=== PATIENT | female | born 1950 | race Caucasian/White ===

== ENCOUNTER 2016-06-30 10:25 | Inpatient (IN) | payer MEDICARE, OTHER ==
[~2016-06-30] VITALS: Ht 152.4 cm; Wt 85.0 kg
[2016-06-30] VITALS (8 sets, daily range): BP systolic 138–198; BP diastolic 68–109; PULSE 68–93; RESP 12–22; O2SAT 89–98
--- NOTE | 2016-06-30 10:52 | ED.REPORT ---
HPI-Altered Mental Status Date of Service Jun 30, 2016 ED Provider: Dr. Corral Pt is a 66 y/o female w/ a hx of HTN presenting to the ED with her daughter due to generalized confusion onset about 2 weeks ago. She is unable to follow conversations, needs inordinate amount of explanation for simple tasks, and other aspects of generalized confusion. The patient saw her PCP in [place] 3 days ago who thought she may have had a stroke and was recommended to "get a blood draw and go back to see her in 1 week". A urine sample was not obtained at that time. She was recently placed on some unspecified memory medication. She denies focal numbness or weakness, dysarthria, fever, chills, nausea, vomiting, abdominal pain, chest pain, shortness of breath. She apparently spends most of her time in bed watching TV which is normal for her. There is a family history of dementia in her mother at age 80. She denies alcohol or drug use. The patient requests her daughter give the history therefore personal history is limited. Nursing Notes Stated Complaint: CONFUSION POSS STROKE WITHIN THE LAST WEEK Chief Complaint: General Complaint Nursing Notes Reviewed: Yes Allergies: Coded Allergies: No Known Allergies (Unverified , 06/30/16) General Time Seen by MD: 10:52 Chief Complaint Confused Hx Obtained From: Patient, Daughter Arrived By: Walk-in Sudden in Onset?: No Onset Occurred: More than a week ago... (2 weeks) Symptom Duration: Since onset Progression since Onset: Constant Severity: Current: No pain currently Severity: Maximum: No pain Similar Sx Previous: No Risk Factors NIH Stroke Scale Level of Consciousness: Alert and responsive (0) Ask Month & Age: 0 questions right (2) Open/Close Eyes/Hand Quantitative Analyst Marketing: Performs both tasks (0) Horizontal EO Movements: None (0) Visual Olmedo: No visual loss (0) Facial Palsy: Normal symmetry (0) Right Arm Motor Drift (10s): No drift 10 sec (0) Left Arm Motor Drift (10s): No drift 10 sec (0) Right Leg Motor Drift (5s): No drift 5 sec (0) Left Leg Motor Drift (5s): No drift 5 sec (0) Limb Ataxia FNF/Heel-Marks: No ataxia (0) Sensation (Arms/Legs/Face): No sensory loss (0) Language Aphasia: Loss fluency ID matls (1) Dysarthria: No dysarthria, normal (0) Extinction/Inattention: No exctinct/inattent (0) NIHSS Score: 3 Time NIHSS Performed: 10:58 Date NIHSS Performed: Jun 30, 2016 Past Medical History Past Medical History Glaucoma Hypertension Past Surgical History None reported Smoking History Unknown if Ever Smoker Social History Alcohol Use: Denies alcohol use Drug Use: Denies drug use Ambulatory Status Independent Review of Systems Constitutional: Denies: Chills, Fever Respiratory: Denies: Non-productive cough, Shortness of breath Cardiovascular: Denies: Chest pain, Dyspnea on exertion GI: Denies: Abdominal pain, Diarrhea, Nausea, Vomiting Neurologic: Reports: Confusion, Denies: Change LOC, Focal weakness, Headache, Numbness, Problem walking, Seizure, Slurred speech, Spinning sensation, Syncope, Vision change Complete sys rev & neg: except as marked. Physical Exam Initial Vital Signs Vital Signs (First) Date Time Temp Pulse Resp B/P Pulse Ox O2 Delivery O2 Flow Rate FiO2 06/30/16 10:42 36.8 68 12 198/109 89 Room Air 06/30/16 16:16 4 Initial VS: Reviewed, Vital signs abnormal ENT: Mucous membranes moist, Conjunctiva normal, No scleral icterus Abdomen / GI: Soft, Non-tender, No guarding, No rebound, No distention Extremities: Vascular intact, Neuro intact, No swelling, No tenderness Skin: Warm, Dry, No cyanosis Psychiatric: Mood/affect normal, Behavior normal, Normal thought content General/Constitutional: Awake, Alert, No acute distress, Cooperative, Not toxic appearing Head / Eyes: Atraumatic, Normocephalic, PERRL, EOMI Neck: Supple, No meningismus, Full range of motion Respiratory / Chest: Atraumatic, Breath sounds NL, Breath sounds = bilat, No respiratory distress, No rales, No rhonchi, No wheezing, No retractions, No stridor, No chest tenderness, No chest wall deformity, No crepitus Cardiovascular: Heart rate NL, Heart sounds NL, No gallop, No murmurs, No rubs Heart Rate / Rhythm: Positive: Irregular rhythm Neurologic: No motor deficits, No sensory deficits, CN II - XII intact, Cerebellar NL See NIH = 3 Interpretation & Diagnostics Interpretation & Diagnostics: MRI brain w/ and w/out contrast: IMPRESSION: 1. Increased restricted diffusion within the left frontal lobe consistent with acute or subacute infarct. 2. No other acute intracranial findings. These findings were discussed with Dr. Corral at 3:30 PM on 06/30/16 Dictated by: Fatemeh Rizo M.D. on 06/30/2016 at 15:48 Approved by: Fatemeh Rizo M.D. on 06/30/2016 at 16:03 Lab Results Interpretation Result Diagram: 06/30/16 1134 06/30/16 1134 Test 06/30/16 11:34 White Blood Count 7.8th/mm3 (3.8-10.1) Red Blood Count 5.37mil/mm3 (3.90-5.20) Hemoglobin 15.8g/dL (12.0-15.6) Hematocrit 47.6% (35.0-46.0) Mean Corpuscular Volume 88.6fL (81-100) Mean Corpuscular Hemoglobin 29.4pg (27.0-35.0) Mean Corpuscular Hemoglobin Concent 33.2% (32.0-37.0) Red Cell Distribution Width 14.8% (12.3-15.4) Platelet Count 285bil/L (150-400) Neutrophils (%) (Auto) 78.0% (40-74) Lymphocytes (%) (Auto) 10.4% (14-46) Monocytes (%) (Auto) 8.6% (4-12) Eosinophils (%) (Auto) 1.2% (0-5) Basophils (%) (Auto) 1.7% (0-3) Prothrombin Time 13.3sec (8.1-12.5) Prothromb Time International Ratio 1.24ratio Urine Color Yellow (YELLOW) Urine Appearance Hazy (CLEAR,HAZY) Urine pH 6.5 (5.0-8.0) Urine Specific Cecil 1.025 (1.003-1.035) Urine Protein 100mg/dL (NEG,TRACE) Urine Glucose (UA) Negativemg/dL (NEGATIVE) Urine Ketones Negativemg/dL (NEGATIVE) Urine Occult Blood Trace (NEGATIVE) Urine Nitrite Negative (NEGATIVE) Urine Bilirubin Negative (NEGATIVE) Urine Urobilinogen Normalmg/dL (NORMAL) Urine Leukocyte Esterase Negative (NEGATIVE) Urine RBC 3-10/hpf (0-2) Urine WBC 0-5/hpf (0-5) Urine Epithelial Cells Occasional/hpf (NONE-MOD) Urine Crystals None seen (NONE SEEN) Urine Bacteria None/hpf (NONE-FEW) Urine Hyaline Casts Occasional/lpf (NONE) Urine Granular Casts None seen (NONE SEEN) Urine Waxy Casts None seen (NONE SEEN) Urine Red Blood Cell Casts None seen (NONE SEEN) Urine White Blood Cell Casts None seen (NONE SEEN) Urine Mucus Present (None Seen) Urine Trichomonas None seen (NONE SEEN) Urine Yeast None (NONE SEEN) Urinalysis Comment None Urine Culture Reflexed Not indicated Sodium Level 138mEq/L (134-144) Potassium Level 2.8mEq/L (3.5-5.2) Chloride Level 96mEq/L (97-108) Carbon Dioxide Level 26mmol/L (18-29) Blood Urea Nitrogen 18mg/dL (8-27) Creatinine 0.91mg/dL (0.57-1.00) Estimat Glomerular Filtration Rate 88mL/min (>59) Glucose Level 145mg/dL (60-99) Calcium Level 9.6mg/dL (8.5-10.1) Total Bilirubin 1.2mg/dL (0.0-1.2) Aspartate Amino Transf (AST/SGOT) 19U/L (0-50) Alanine Aminotransferase (ALT/SGPT) 12U/L (0-32) Alkaline Phosphatase 50U/L (25-165) Pro-B-Type Natriuretic Peptide 3604pg/mL (0-301) Total Protein 7.7g/dL (6.4-8.4) Albumin 3.7g/dL (3.4-5.0) Thyroid Stimulating Hormone (TSH) 2.900uIU/mL (0.450-4.500) Hold Julian Top Tube Received (Received) ECG Interpretation ECG Interpretation: A-fib rate 88 PVC LPFB Nonspecific T abnormalities, lateral leads Time: 13:04 Interpreted by: ED physician Normal ECG Interpretation: No acute ischemic changes X-Ray Chest Interpretation Chest Xray Interpretation: IMPRESSION: 1. Increased pulmonary vascularity suggestive of edema. Bibasilar coarsened prominence as above. This may represent focal edema versus superimposed airspace disease such as developing pneumonia/atelectasis. Dictated by: Gillian Shaikh M.D. on 06/30/2016 at 11:46 Approved by: Gillian Shaikh M.D. on 06/30/2016 at 11:46 View: Portable, AP & lat Interpretation / Wet Read by: Interpret - Radiologist CT Head Interpretation IMPRESSION: 1. No acute intracranial hemorrhage. 2. Probable chronic small vessel ischemic changes. If there is clinical concern for acute ischemia, MRI would be helpful for better evaluation, particularly involving the left frontal lobe. Dictated by: Jose Hampton M.D. on 06/30/2016 at 10:54 Approved by: Jose Hampton M.D. on 06/30/2016 at 10:56 Study: Head CT no contrast Interpretation / Wet Read by: Interpret - Radiologist Re-Eval/Medical Decision Re-Evaluation/Progress #1: Time of Eval: 12:37 Re-Evaluation/Progress Note: Discussed findings thus far with pt and daughter. Will obtain MRI. Re-Evaluation/Progress #2: Time of Eval: 15:23 Re-Evaluation/Progress Note: Pt rechecked. Informed patient and daughter of need for admission due to likely acute frontal lobe ischemic stroke. Pt understands and agrees with need for admission. All questions addressed. Consultation : Referral / Consult Name: Brijesh Tolentino MD Consulted With: Hospitalist Call Returned at: 16:15 Maori Physiotherapist: Will see patient, Agrees with eval, Agrees with plan, Accepts admit Counseled Regarding: Diagnosis, Lab results, Need for admission Patient Discharge & Departure Impression: Primary Impression: Ischemic stroke of frontal lobe Disposition: ADMITTED TO HOSPITAL Discharge Condition All VS Reviewed: Yes Condition: Stable Scribe Attestation Portions of this note were transcribed by Shine Hernandez. I, Dr. Corral personally performed the history, physical exam and medical decision-making; I reviewed and confirmed the accuracy of the information in the transcribed note. Signed by Tori Fontenot, 06/30/16 - 1099 Lonnie Corral MD Jun 30, 2016 10:52 SHINE HERNANDEZ Jun 30, 2016 11:00
[2016-06-30 11:38] LABS: BASOPHILS % (AUTO) 1.7 % (0-3); EOSINOPHILS % (AUTO) 1.2 % (0-5); MONOCYTES % (AUTO) 8.6 % (4-12); Mean Corpuscular Hemoglobin 29.4 pg (27.0-35.0); Mean Corpuscular Volume 88.6 fL (81-100); Platelet Count 285 bil/L (150-400)
[2016-06-30 11:41] LABS: APPEARANCE,URINE HAZY (CLEAR,HAZY); COLOR,URINE YELLOW (YELLOW); PH,URINE 6.5 (5.0-8.0)
[2016-06-30 11:42] LABS: OCCULT BLOOD,URINE TRACE (NEGATIVE); UROBILINOGEN,URINE NORMAL (NORMAL)
--- NOTE | 2016-06-30 11:48 | DRSVH ---
PROCEDURE: X-RAY CHEST, TWO VIEWS ([id number]) INDICATIONS: confusion TECHNIQUE: 2 views of the chest were acquired. COMPARISON: None. FINDINGS: Surgical changes and devices: None. Lungs and pleura: There is an overall appearance of increased pulmonary vascularity. There is slight increased coarsened opacities within the bases bilaterally. Mediastinum: Mediastinal contours are normal. Heart size is enlarged. Bones and chest wall: No suspicious bony abnormalities. Soft tissues appear unremarkable. IMPRESSION: 1. Increased pulmonary vascularity suggestive of edema. Bibasilar coarsened prominence as above. This may represent focal edema versus superimposed airspace disease such as developing pneumonia/atelecta sis. Dictated by: Gillian Shaikh M.D. on 06/30/2016 at 11:46 Approved by: Gillian Shaikh M.D. on 06/30/2016 at 11:46
[2016-06-30 11:55] LABS: INR 1.24 ratio
--- NOTE | 2016-06-30 11:58 | DRSVH ---
PROCEDURE: CT BRAIN WITHOUT CONTRAST ([id number]) INDICATIONS: Confusion TECHNIQUE: Noncontrast 4.5 mm thick angled axial sections acquired from the foramen magnum to the vertex, with c oronal reformats. COMPARISON: None. FINDINGS: Image quality: Diagnostic. Brain: There is no acute intra-axial or extra-axial hemorrhage. No extra-axial fluid collection is i dentified. There is no midline shift or mass effect. The orbits are grossly unremarkable. No large areas of diffusely decreased attenuation are evident within the brain to suggest diffuse cer ebral edema. Moderate-sized area of low attenuation is seen within the deep white matter of the left frontal lobe. There may be additional areas of periventricular white matter low attenuation. The ventricles and cortical sulci are age-appropriate. Bones: Calvarium and visualized facial bones are grossly intact. The imaged paranasal sinuses and m astoid air cells are clear. IMPRESSION: 1. No acute intracranial hemorrhage. 2. Probable chronic small vessel ischemic changes. If there is clinical concern for acute ischemia, MRI would be helpful for better evaluation, particularly involving the left frontal lobe. Dictated by: Jose Hampton M.D. on 06/30/2016 at 10:54 Approved by: Jose Hampton M.D. on 06/30/2016 at 10:56
--- NOTE | 2016-06-30 16:05 | DRSVH ---
PROCEDURE: MRI BRAIN WITHOUT CONTRAST ([id number]) INDICATIONS: acute confusion TECHNIQUE: Noncontrast axial T1 spin echo, axial T2 fast spin echo, sagittal and axial FLAIR, coronal T2 fast sp in echo, axial gradient echo, axial diffusion and ADC through the brain. COMPARISON: None. FINDINGS: Image quality: Excellent. CSF Spaces: Basal cisterns are patent. No extra-axial fluid collections. Ventricles are normal in size and shape. Brain: No intracranial masses or hemorrhage. Gutierrez/white matter interface is normal. Brainstem appe ars normal. Focal increased restricted diffusion is present within the left frontal lobe. There is no T2 shine through associated with this region consistent with acute or subacute infarct. No other abn ormal foci of increased restricted diffusion. No chronic ischemic insults. Normal intravascular flow voids are present. Skull and face: Calvarium has normal marrow signal. Orbits appear normal. Sinuses: Sinuses and mastoids are clear. IMPRESSION: 1. Increased restricted diffusion within the left frontal lobe consistent with acute or subacute infa rct. 2. No other acute intracranial findings. These findings were discussed with Dr. Corral at 3:30 PM on 06/30/16 Dictated by: Fatemeh Rizo M.D. on 06/30/2016 at 15:48 Approved by: Fatemeh Rizo M.D. on 06/30/2016 at 16:03
[2016-06-30] MEDS ORDERED: Ondansetron 2 mg/mL 2 mL Inj IVPUSH PRN (16:15)
[2016-06-30] MEDS ORDERED: Labetalol 5 mg/mL 4 mL Inj IVPUSH PRN (16:15)
[2016-06-30] MEDS ORDERED: Alum-Mag Hydrox-Simeth 30 mL Suspension PO PRN (16:15)
[2016-06-30] MEDS ORDERED: Polyethylene Glycol (PEG) 17 Gm Powder PO PRN (16:15)
[2016-06-30] MEDS ORDERED: hydrALAZINE 20 mg/mL Inj IVPUSH PRN (16:15)
--- NOTE | 2016-06-30 17:36 | PCM.HPMED ---
Subjective Date of Service Jun 30, 2016 Primary Provider: Admitting Physician: Brijesh Tolentino MD Primary Care Physician: Nopalayna Attending Physician: Brijesh Tolentino MD Admit Status: From the Emergency Department, Full Admit Chief Complaint: Confusion/2 weeks History of Present Illness: History limited due to patient's confusion. Daughter who lives in [place] left to pick her kids. her number not registered. Patient from [facility]. History obtained from ED physician and chart 66-year-old lady with past medical history of Afib, hypertension and glaucoma was brought in by daughter because of continued confusion for the last 2 weeks. per ED note "She is unable to follow conversations, needs inordinate amount of explanation for simple tasks, and other aspects of generalized confusion. The patient saw her PCP in [place] 3 days ago who thought she may have had a stroke and was recommended to "get a blood draw and go back to see her in 1 week". A urine sample was not obtained at that time. She was recently placed on some unspecified memory medication? donepezil . She denies focal numbness or weakness, dysarthria, fever, chills, nausea, vomiting, abdominal pain, chest pain, shortness of breath. She apparently spends most of her time in bed watching TV which is normal for her. There is a family history of dementia in her mother at age 80. She denies alcohol or drug use. At time of examination, patient not oriented to place or person.answers in yes and no . Repeats whatever is asked . Patient says ' no ' to recent cough or worsening dyspnea. per ED physician patient was told she has A. fib and was prescribed pradaxa but did not take it. ED course: Initial BP 192/109, saturating 89% on room air, in A. fib rate controlled, chest x-ray congestion versus pneumonia, MRI shows left frontal lobe acute/subacute infarct. Initial NIHSS 3 , not candidate for TPA. Dementia is requested for acute stroke. Review of Systems: Unable to obtain due to confusion. Allergies Coded Allergies: No Known Allergies (Unverified , 06/30/16) Home Medications per ED Pradaxa 150 milligrams po bid Diltiazem 180 mg per day Donepezil 5 mg by mouth daily Hydrochlorothiazide 50 mg. Daily Latanoprost eyedrop Paroxetine 40 mg by mouth daily PMH Per ED Hypertension History of atrial fibrillation Glaucoma Surgical History Unable to obtain due to patient's confusion Family History per ED mother had dementia at age 80 Social History Smoking Status: Unknown if Ever Smoker Exam Vital Signs Vital Sign - Last Date Time Temp Pulse Resp B/P Pulse Ox O2 Delivery O2 Flow Rate FiO2 06/30/16 16:16 36.4 88 20 177/68 94 Nasal Cannula 4 Exam Gen. patient is in mild respiratory distress with tachypnea HEENT: Head is normocephalic atraumatic, Pupils equal and reactive, extraocular movements intact, Rhonchi on left lower lobe Heart irregular rate and rhythm without murmurs gallops or rubs Abdomen soft nontender without hepatosplenomegaly Extremities pulses are present dorsalis pedis posterior tibialis and radial. Skin is warm and dry there are no rashes, Psych alert and oriented to person place and time Neuro confused and mumbles. Motor intact 5/5 all over, sensation difficult to assess due to patient's confusion. Symmetrical face Lymph: There is no lymphadenopathy appreciated in the cervical supra infraclavicular regions : no nunez Lab and Diagnostics Result Diagram: 06/30/16 1134 06/30/16 1134 X-Rays, CTs and MRIs PROCEDURE: MRI BRAIN WITHOUT CONTRAST ([id number]) IMPRESSION: 1. Increased restricted diffusion within the left frontal lobe consistent with acute or subacute infarct. 2. No other acute intracranial findings. These findings were discussed with Dr. Corral at 3:30 PM on 06/30/16 Dictated by: Fatemeh Rizo M.D. on 06/30/2016 at 15:48 PROCEDURE: X-RAY CHEST, TWO VIEWS ([id number]) IMPRESSION: 1. Increased pulmonary vascularity suggestive of edema. Bibasilar coarsened prominence as above. This may represent focal edema versus superimposed airspace disease such as developing pneumonia/atelectasis. Dictated by: Gillian hSaikh M.D. on 06/30/2016 at 11:46 Assessment & Plan 66-year-old lady with past medical history of Afib, hypertension and glaucoma was brought in by daughter because of continued confusion for the last 2 weeks # Acute left frontal stroke -Suspect embolic given A. fib with unclear anticoagulation compliance. -initial NIHSS 3 -MRI consistent with left frontal lobe acute/subacute infarct -Aspirin and atorvastatin ordered -PT/OT/ST requested -Echocardiogram and carotid duplex pending -will hold off anticoagulation for now. May consider restarting anticoagulation tomorrow after verifying onset of symptoms > 10 days from daughter and discussing with [facility] neurology. -Symptom onset reportedly 2 weeks. No need for permissive hypertension. Will resume home diltiazem and hydrochlorothiazide. Started amlodipine 10 mg by mouth daily for additional BP control # Hypertensive urgency -Symptom onset reportedly 2 weeks. No need for permissive hypertension. Will resume home diltiazem and hydrochlorothiazide. Started amlodipine 10 mg by mouth daily for additional BP control # Hypokalemia -Initial K 2.8, repeleted -Follow-up BMP in am #Suspected left lower lobe aspiration pneumonitis -Afebrile, no leukocytosis, rhonchi on left lower chest -Possible aspiration pneumonitis, pneumonia unlikely. Will pro-calcitonin. will hold off empiric antibiotics. Consider empiric antibiotics if any fever -BNP elevated at 3604, chest x-ray suspicious for congestion. Echo pending. Breathing comfortably. will hold off empiric diuresis # Atrial fibrillation, rate controlled -Unclear when she was diagnosed and if she is compliant with pradaxa.May consider restarting anticoagulation tomorrow after verifying onset of symptoms > 10 days from daughter and discussing with [facility] neurology. # Recent cognitive decline and confusion -Most likely due to subacute CVA, patient reportedly started on donepezil recently. will verify from daughter and discontinue tomorrow CODE STATUS, unable to verify, default full code Patient admitted under inpatient status with expected length of stay > 2 midnights for severity of present symptoms, complexities of treatment plan and risk for adverse events Time spent 50 minutes Brijesh Tolentino MD Jun 30, 2016 17:36
[2016-06-30] MEDS ORDERED: DABI150C PO (17:38)
[2016-06-30] MEDS ORDERED: HYDR50TA3 PO (17:38)
[2016-06-30] MEDS ORDERED: DILT180C81 PO (17:38)
[2016-06-30] MEDS ORDERED: LATA2.5D6 BOTH_EYES (17:38)
[2016-06-30] MEDS ORDERED: DONE5TAB30 PO (17:38)
[2016-06-30] MEDS ORDERED: PARO40TA3 PO (17:38)
--- NOTE | 2016-06-30 17:46 | DRSVH ---
PROCEDURE: US BILATERAL DUPLEX DOPPLER IMAGING OF THE CAROTIDS ([id number]) INDICATIONS: CVA TECHNIQUE: Color and pulse Doppler interrogation was performed of both carotid systems, with image documentation and velocity measurements. COMPARISON: None. FINDINGS: All stenosis calculations are based on NASCET criteria. Right side: Brachial blood pressure: 177/68 mm Hg. Common carotid artery peak systolic velocity: 52 cm/sec. Internal carotid artery peak systolic velocity: 52 cm/sec. Internal carotid artery end diastolic velocity: 13 cm/sec. External carotid artery peak systolic velocity: 75 cm/sec. ICA/CCA peak systolic ratio: 1.0 . Gutierrez scale imaging description: There is mild calcified plaque at the carotid bifurcation. Percent internal carotid artery stenosis: Less than 50%. Vertebral artery: Flow direction is antegrade. Left side: Brachial blood pressure: 197/87 mm Hg. Common carotid artery peak systolic velocity: 63 cm/sec. Internal carotid artery peak systolic velocity: 103 cm/sec. Internal carotid artery end diastolic velocity: 9 cm/sec. External carotid artery peak systolic velocity: 187 cm/sec. ICA/CCA peak systolic ratio: 1.6 . Gutierrez scale imaging description: There is mild calcified plaque at the carotid bifurcation. Percent internal carotid artery stenosis: Less than 50%. Vertebral artery: Flow direction is antegrade. IMPRESSION: 1. No evidence of hemodynamically significant stenosis in the carotid bulbs. Dictated by: Howie Don M.D. on 06/30/2016 at 17:42 Approved by: Howie Don M.D. on 06/30/2016 at 17:45
--- NOTE | 2016-06-30 17:48 | NUR ---
Evaluation completed. Please go to "Notes" then click on "Assessments and Notes" (bottom left corner of screen). Then select appropriate discipline tab on top of screen.
[2016-06-30] MEDS ORDERED: Potassium Chloride 20 mEq SR Tablet PO ONE (18:00)
--- NOTE | 2016-06-30 18:45 | NUR ---
Arrived to [facility] from ED Report taken 16:30pm Kathleen Parham RN; 18:45pm pt arrived to [facility] Rm 1007 from ED and tucked into bed with family at BS. BP 190's/90's, no c/o pain per aide. Report given to JULES rubalcava RN.
[2016-06-30] MEDS: Heparin 5,000 Unit/mL Inj SUBQ SCH (20:18)
[2016-06-30] MEDS: Diltiazem CD 180 mg ER24 Capsule PO SCH (20:19)
[2016-06-30] MEDS: PARoxetine 20 mg Tablet PO SCH (20:20)
[2016-07-01] VITALS (8 sets, daily range): BP systolic 126–168; BP diastolic 61–78; PULSE 60–76; RESP 16–18; O2SAT 90–97
--- NOTE | 2016-07-01 01:51 | NUR ---
HYPERTENSION Pt arrived on [facility] at 1842, spoke with pt and daughter after shift change and report rec'd from Day RN. Pt denies hunger, 1:1 for feeding at this time with general diet. Family phone #s noted on white board in room per their request. This RN spoke with Dr Mata, discussed BP after PO meds are administered and was given verbal instructions to administer labetalol IV PRN at 2100: BP 180/95, recheck at 2300 138/79. On tele, SR. 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 Somewhat aphasic with slow speech and word searching, AOx2 baseline. Pt appears comfortable in bed, states no SOB or pain. Care continues
[2016-07-01] MEDS: Heparin 5,000 Unit/mL Inj SUBQ SCH ×3 (05:05→20:17)
[2016-07-01 05:39] LABS: BASOPHILS % (AUTO) 1.2 % (0-3); EOSINOPHILS % (AUTO) 1.1 % (0-5); MONOCYTES % (AUTO) 10.9 % (4-12); Mean Corpuscular Hemoglobin 29.4 pg (27.0-35.0); Mean Corpuscular Volume 89.7 fL (81-100); NEUTROPHILS % (AUTO) 75.7 % (40-74); Platelet Count 282 bil/L (150-400)
[2016-07-01] MEDS: PARoxetine 20 mg Tablet PO SCH (08:57)
[2016-07-01] MEDS: Diltiazem CD 180 mg ER24 Capsule PO SCH (08:57)
--- NOTE | 2016-07-01 09:58 | NUR ---
Limited evaluation completed. Pt. refused to get out of bed. Otherwise cooperative. Will try again for out of bed functional assessment. José Coffey, OTR/L
--- NOTE | 2016-07-01 14:07 | DRSVH ---
PROCEDURE: MRA ANGIOGRAM HEAD WITHOUT CONTRAST ([id number]) INDICATIONS: acute stroke. TECHNIQUE: Noncontrast axial 3-D [id number] MR angiogram, with 3-dimensional maximum intensity projection (M IP) reformats of the internal carotid arteries and posterior circulation then performed. COMPARISON: [facility], MR, MR BRAIN WO CON, 06/30/2016, 13:50. FINDINGS: Image quality: Excellent. Anterior circulation: Intracranial internal carotid arteries demonstrate normal size and intralumina l flow signal. The flow within the paired anterior cerebral arteries is normal and symmetric. The f low within the middle cerebral arteries is normal and symmetric. The anterior communicating artery i s seen. No stenoses, occlusions, or aneurysms. Posterior circulation: Visualized portions of the vertebral arteries demonstrate normal caliber, and join to form a normal appearing basilar artery. There is a origin of the left posterior cerebr al artery. The flow within the posterior cerebral arteries is normal and symmetric. No stenoses, occ lusions, or aneurysms. IMPRESSION: 1. Negative cerebral MR angiography. Dictated by: Eva Perez M.D. on 07/01/2016 at 14:03 Approved by: Eva Perez M.D. on 07/01/2016 at 14:05
--- NOTE | 2016-07-01 15:01 | PCM.PNMED ---
Subjective Date of Service Jul 01, 2016 Subjective Denies any complaints or discomfort. Denies any weakness, numbness, change in vision, confusion. Exam Vital Signs Vital Sign - Last Date Time Temp Pulse Resp B/P Pulse Ox O2 Delivery O2 Flow Rate FiO2 07/01/16 12:38 36.6 62 18 134/67 90 Room Air 07/01/16 05:09 2.00 Intake and Output 06/30/16 06/30/16 07/01/16 Cumulative From/Thru 15:00 23:00 07:00 06/30/16 10:42 - 07/01/16 05:09 Intake Total 200 ml 200 ml Output Total 250 ml 850 ml 1100 ml Balance -250 ml -650 ml -900 ml Intake Oral 200 ml 200 ml Output Urine Total 250 ml 850 ml 1100 ml # Bowel Movements 0 [address] but disoriented to time and person although with some help is able to recall the president. General: Alert, Cooperative, No Acute Distress Head: Normal Eyes: PERRLA, EOMI Nose: Mucous Membr Moist/[place] Mouth: Mucous Membr Moist/[place] Neck: Supple Chest & Lungs: Chest Wall Normal, Clear to auscultation & percussion Cardiovascular: Regular Rate/Rhythm Abdomen: Non-tender, Non-distended, Normoactive bowel tones, Soft Extremities: No cyanosis/clubbing/edma bilat Neurological: Grossly Neurologically Intact, Cranial Nerves 2-12 Intact, Normal Speech, Strength Normal 06/10 ext IVs and Medications Medications Reviewed: Medications were reviewed in detail Lab and Diagnostics Result Diagram: 07/01/16 0510 07/01/16 0510 X-Rays, CTs and MRIs PROCEDURE: MRI BRAIN WITHOUT CONTRAST ([id number]) IMPRESSION: 1. Increased restricted diffusion within the left frontal lobe consistent with acute or subacute infarct. 2. No other acute intracranial findings. These findings were discussed with Dr. Corral at 3:30 PM on 06/30/16 Dictated by: Fatemeh Rizo M.D. on 06/30/2016 at 15:48 PROCEDURE: X-RAY CHEST, TWO VIEWS ([id number]) IMPRESSION: 1. Increased pulmonary vascularity suggestive of edema. Bibasilar coarsened prominence as above. This may represent focal edema versus superimposed airspace disease such as developing pneumonia/atelectasis. Dictated by: Gillian Shaikh M.D. on 06/30/2016 at 11:46 Assessment & Plan 66-year-old lady with past medical history of Afib, hypertension and glaucoma was brought in by daughter because of continued confusion for the last 2 weeks # Acute to subacute left frontal stroke. Present on admission. - History of A. fib with unclear anticoagulation compliance. - Neurology consulted today. Will followup with recommendations - Check MRA head - Continue with Aspirin and atorvastatin for now - PT/OT/ST - Followup pending Echocardiogram - Continue with blood pressure control - Avoid anticoagulation for A-Fib for now - Patient tells me she had not been compliant with her medications although given her disorientation currently her history is somewhat suspect\ # Acute kidney injury. Mild. Not present on admission. - Avoid nephrotoxic medications - Followup repeat labs and consider gentle IV hydration # Acute Hypokalemia. Present on admission. - Resolved after repletion - Followup # Suspected left lower lobe aspiration pneumonitis on admission. - Afebrile, no leukocytosis, rhonchi on left lower chest - Possible aspiration pneumonitis, pneumonia unlikely. - Continue to hold antibiotics for now. Consider empiric antibiotics if any fever # Atrial fibrillation, rate controlled - Unclear when she was diagnosed and if she is compliant with Pradaxa. - Followup with neurology consult on when to resume anticoagulation - Consider cardiology consult pending echo result - Followup with family when available regarding prior history and care # Recent cognitive decline and confusion - Most likely due to subacute CVA, - Reportedly started on donepezil recently. Dispo: 1-2 days Yosvany Tesfaye Jul 01, 2016 15:01
--- NOTE | 2016-07-01 15:10 | DRSVH ---
[facility] [address] [place] [address] Echocardiogram Report Name: NIRANJAN DAVIES CStudy Date: 07/01/2016 Height: 60 in Hospital Exam Location: [facility] Weight: 193 lb Gender: Female BSA: 1.8 m2 : 1950 Age: 66 yrs BP: 126/76 mmHg Reason For Study: CVA Ordering Physician: Performed By: Nica Youssef Interpretation Summary 1) Mild concentric left ventricular hypertrophy with normal size and normal systolic function (EF 55-60%). 2) Mid to distal anteroseptum, mid to distal inferoseptum, and distal inferior wall have severe hypokinesis. 3) No thrombus noted in the left ventricle. 4) Mildly to moderately dilated right ventricle wtih mildly to moderately reduced function. 5) Severe biatrial enlargement. 6) Moderate tricuspid regurgitation present. 7) Pulmonary hypertension present, esimated systolic pulmonary pressure of 63mmHg. 8) Elevated left sided and right sided filling pressures. 9) Atral fibrillation with controlled ventricular rates present during the study. 10) No prior Echo available for comparison. Procedure: A two-dimensional transthoracic echocardiogram with color flow and Doppler was performed. The study quality was technically difficult. A contrast injection of Definity was performed to improve assessment of LV function. Contrast was injected into an intravenous site in the left arm. A total of 5 cc of contrast was given. The patient was in atrial fibrillation with controlled ventricular rate during the exam. Left Ventricle: There is mild concentric left ventricular hypertrophy. There is no thrombus. The ejection fraction is estimated to be 55-60%. Left ventricular systolic function is normal. Mid to distal anteroseptum, mid to distal inferoseptum, and distal inferior wall have severe hypokinesis. Diastolic function could not be accurately assessed due to atrial fibrillation. Right Ventricle: The right ventricle is mild to moderately dilated. Right ventricular systolic function is mildly reduced. Atria: Both atria are severely dilated. There is no Doppler evidence for an atrial septal defect. Mitral Valve: There is moderate mitral annular calcification. There is trace mitral regurgitation. Aortic Valve: The aortic valve is trileaflet. The aortic valve opens well. There is no hemodynamically significant valvular aortic stenosis. No aortic regurgitation is present. Tricuspid Valve: The tricuspid valve leaflets are thin and pliable. There is moderate tricuspid regurgitation. The right ventricular systolic pressure is estimated at 63 mmHg assuming a right atrial pressure of 15 mm Hg. Pulmonic Valve: The pulmonic valve is not well seen, but is grossly normal. There is a trace or physiologic amount of pulmonic regurgitation. Great Vessels: The aortic root is normal size. The dimensions of the ascending aorta are normal. The pulmonary artery is normal size. The IVC is dilated (diameter is greater than 2.1 cm) and it collapses less than 50% with a sniff. This suggests a high right atrial pressure of 15 mm Hg. Pericardium/ Pleura There is no pericardial effusion. There is no pleural effusion. MMode/2D Measurements & Calculations LVIDd: 4.6 cm LA dimension: 5.1 cm RA long axis LVOT diam: 1.9 cm LVIDs: 3.2 cm AoV Opening FS: 29.7 % LA A2 area: 29.1 cm RA area EPSS: 0.88 cm LA A4 area: 32.8 cm Ao root diam IVSd: 0.97 cm LA length (vol) : 29.0 cm LVPWd: 1.1 cm RA vol asc Aorta Diam LA vol: 126.3 ml : 112.ml LA vol index RA Ao Arch Diam (Prox : 61.2 mm2 Trans): 2.5 cm IVC diam: 2.3 cm LV yañez. diameter/BSA LV sys. diameter/BSA RVD2 (mid) (cm/m^2): 2.5 (cm/m^2): 1.8 : 3.8 cm Doppler Measurements & Calculations Ao V2 max MV E max saeid Med Peak E' Saeid TR max saeid : 189.1 cm/sec : 105.6 cm/sec : 346.3 cm/sec Ao max PG E/E' med: 20.7 TR max P.2 mmHg : 14.3 mmHg Lat Peak E' Saeid PA V2 max Ao mean PG : 134.9 cm/sec E/E' lat: 14.0 PA mean P.9 mmHg LVOT Max Saeid E/e' average PA Accel Time : 93.7 cm/sec : 0.07 sec JUSTIN(I,D): 1.5 cm sev ratio Ao V2 mean LV V1 max PG PA V2 mean JUSTIN indexed to BSA : 123.6 cm/sec : 78.8 cm/sec (cm^2/m^2): 0.79 Ao V2 VTI LV V1 VTI: 18.5 cm JUSTIN(V,D): 1.3 cm2 Reading Physician:03:10 PM
--- NOTE | 2016-07-01 15:14 | NUR ---
Evaluation completed. Please go to "Notes" then click on "Assessments and Notes" (bottom left corner of screen). Then select appropriate discipline tab on top of screen.
--- NOTE | 2016-07-01 15:43 | CONS ---
[address] [address] CONSULTATION REPORT PATIENT: NIRANJAN DAVIES : 1950 MR#: [id number] ADMIT: 06/30/2016 JOB ID: [id number] DATE OF SERVICE: 07/01/2016 NEUROLOGY CONSULTATION: REQUESTING PHYSICIAN: Dr. Tesfaye for acute stroke. HISTORY OF PRESENT ILLNESS: The patient is a 66-year-old female with apparent history of atrial fibrillation, prescribed Pradaxa which was questionably taking it, who arrived at the emergency department confused with aphasia on June 30, 2016. She was accompanied by her daughter, Kerri Hidalgo who provides the history today. She reports that her mother became confused the weekend of . She reports getting a call from her father who reported that her mother had made dinner consisting only of sauce for spaghetti and then one night meat with nothing else. She spoke with her mother by phone and her mother only answered with one-word answers. Kerri wanted her father to take her to the hospital but her father declined, instead setting up an appointment with their physician in [place] on the following week. Although Kerri wanted an earlier appointment, her father elected to wait until last Thursday. At that time, Kerri drove down to [place] to be at the appointment. The provider felt that her mother had dementia. 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 Kerri probed on whether this might be more consistent with stroke but the provider said it would not do any good at this point to be seen at a hospital for stroke since there was nothing that could be done. She recommended and provided a prescription for donepezil for dementia. At the time of the visit, the mother was hypertensive and in atrial fibrillation. Pradaxa was prescribed but not clearly being taken. It is unclear who prescribed this spot likely it was prescribed by a administrative asst. Kerri had all the prescriptions rewritten and bottles filled and her mother resumed taking Pradaxa over the weekend along with the donepezil. With increasing confusion over the weekend, her father called his administrative asst who recommended evaluation for a stroke. The patient was taken by Kerri from [place] to [facility] where she was evaluated in the emergency department on June 30, 2016. An MRI which I have personally reviewed on the PAC system shows evidence of a left frontal lobe subacute infarction with both diffusion and FLAIR imaging changes but no evidence of hemorrhage. Carotid ultrasound showed no evidence of hemodynamically significant stenosis in either carotid artery. The patient was noted to be in AFib. She was given 325 mg aspirin. Blood pressure was noted to be 198/109 with laboratories showing elevated glucose. Dr. Tesfaye called to discuss the results of the MRI and my recommendations for anticoagulation. I advised him that given the amount of time since the stroke there was no need for permissive hypertension, and in fact, continuing hypertension may result in a hemorrhagic stroke. Therefore, good blood pressure control was recommended. I advised him I would make additional comment after Evaluating the patient and consultation. PAST MEDICAL HISTORY: 1. Hypertension. 2. Atrial fibrillation. 3. Glaucoma. HOME MEDICATIONS: 1. Pradaxa 150 mg b.i.d. 2. Diltiazem 180 mg daily. 3. Donepezil 5 mg. 4. Hydrochlorothiazide 50 mg. 5. Eyedrops. 6. Paroxetine 40 mg daily. FAMILY HISTORY: Mother had dementia. No family history of stroke reported. No smoking. 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 REVIEW OF SYSTEMS: Questionable review of systems given patient's aphasia. No obvious complaints per patient. Unable to obtain further confirmation of review of systems due to aphasia. DRUG ALLERGIES: None. HOSPITAL MEDICATIONS: 1. Hydrochlorothiazide 50 mg. 2. Amlodipine 10 mg. 3. 325 mg aspirin. 4. Paroxetine 40 mg. 5. Subcutaneous heparin. 6. Atorvastatin 40 mg. 7. Labetalol given at 1600, otherwise listed as p.r.n. PHYSICAL EXAMINATION: The patient is pleasant and cooperative, in no apparent distress, eating her lunch. Vital signs show blood pressure 134/64, pulse oximetry 90% on room air. Temperature afebrile, pulse 62. Telemetry shows atrial fibrillation, respiratory rate 18. Head: Atraumatic, normocephalic. No carotid bruits. Cardiac: Irregular heart rhythm. Extremities: No edema or lesions. NEUROLOGIC EXAMINATION: The patient is alert. She has receptive aphasia and answers occasionally with full sentences. At other times, says I don't know. No dysarthria noted. Mood appears to be euthymic with a restricted affect. Cranial nerves: Pupils are equally reactive to light and accommodation. Extraocular movements intact. No facial asymmetry. Sensation intact on the face bilaterally. Tongue midline. Palate raises symmetrically. SCM and shoulder shrug, as well as hearing appear to be intact bilaterally. Motor strength: Intact in the upper and lower extremities, 5/5 with no pronator drift or leg drift. Deep tendon reflexes: 2+ throughout with plantar reflex flexor. Sensation: Intact to pinprick, soft touch, vibration and proprioception in upper and lower extremity. Coordination: Intact finger to nose, heel to kinsey and rapid alternating movement in the upper and lower extremity. Gait: Deferred, but noted to have intact gait with some hesitation with physical therapy. LABORATORIES: Creatinine 1.02. Glucose 139. UA negative. Please see full report for detail. IMAGING STUDIES: As per the history of present illness. Subacute stroke in the left frontal head region. ASSESSMENT AND RECOMMENDATION: The patient is a 66-year-old female with atrial fibrillation questionably off of anticoagulation with Pradaxa when a stroke occurred. Imaging studies shows evidence of an acute left frontal MCA subacute stroke likely anterior MCA distribution resulting in confusion and aphasia. 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 There is intact fluency, reading and fair comprehension with visual confrontation, intact naming and repetition. This suggests that she will have better opportunity for good recovery. I recommended in addition to keeping blood pressure in good control, correcting any possible metabolic problems. I noted that her glucose is elevated. Hyperglycemia and diabetes can cause worsening stroke. I recommend continuing physical therapy for ambulation and speech therapy to regain language both in the hospital and after discharge. With respect to the patient's subacute stroke, it appears to be at least one week since her stroke occurred. I would wait until the end of this week before resuming Pradaxa unless it is otherwise advised from Cardiology. Until then, I would recommend continuing 325 mg aspirin. I also recommended CT angiography of the brain to evaluate for any occlusive vessels. I agree with medical management as outlined by the hospitalist. My recommendations were discussed in detail with Dr. Tesfaye and with the patient's daughter, Kerri, who is at the bedside. Over half of this 1 hour consultation was spent was spent in counseling with the patient and her daughter. Thank you for this consultation. I will make further recommendations based on the results of studies. Please call if needed. EVITA
--- NOTE | 2016-07-01 16:00 | NUR ---
Social Work: Initial Assessment Data: Pt is a 66 y/o female admitted for CVA per H&P. SW met with patient at bedside to conduct initial assessment. Pt was alert and oriented. Pt confirmed the following: Pt is currently looking for a PCP. Pt's insurance is Medicare and [employer]. Pt lives in a single-story home alone with no steps. Patient does not use any DME. Pt drives and is independent at baseline. Pt does not have LTC or VA insurance. Pt has no SNF or HH history. Pt has not completed DPOA/advanced directive ppw and decline any further information. Pt confirmed her daughter Kerri is her NOK but was not able to provide a phone number. Pt confirmed daughter would provide transportation at time of discharge. PT/OT orders are pending for pt. SW will follow-up with pt after PT/OT has been completed. Assessment: Pt who is independent at baseline. Plan: Follow-up with pt after PT/OT has been completed to determine any discharge needs. KIKO Daniels Addendum: 07/01/16 at 1605 by KYA MOREJON Amended: Links added.
--- NOTE | 2016-07-01 19:10 | NUR ---
Neuro- Patient is alert to self and able to answer questions with yes or no answers. She does not initiate conversation and is irritable at times, refusing to have vital signs done, to get up to chair, and interacting with staff,etc. Denies pain, visual changes or headache when asked. Gait is steady. No problems with chewing or swallowing. Tele- A-fib. SBP- 130-160.
[2016-07-02] VITALS (8 sets, daily range): BP systolic 126–164; BP diastolic 76–83; PULSE 66–87; RESP 16–20; O2SAT 85–93
[2016-07-02] MEDS: Heparin 5,000 Unit/mL Inj SUBQ SCH ×3 (00:41→16:43)
[2016-07-02] MEDS ORDERED: KCl 40 mEq/D5W 500 mL 40 MEQ in IV Premix 500 EACH IV ONE (07:40)
[2016-07-02] MEDS ORDERED: Potassium Chloride 20 mEq SR Tablet PO ONE (07:40)
[2016-07-02] MEDS: PARoxetine 20 mg Tablet PO SCH (08:42)
[2016-07-02] MEDS: Diltiazem CD 180 mg ER24 Capsule PO SCH (08:42)
--- NOTE | 2016-07-02 13:30 | PCM.PNMED ---
Subjective Date of Service Jul 02, 2016 Subjective Denies any complaints or discomfort. Denies any weakness, numbness, change in vision, confusion. Exam Vital Signs Vital Sign - Last Date Time Temp Pulse Resp B/P Pulse Ox O2 Delivery O2 Flow Rate FiO2 07/02/16 10:51 78 07/02/16 08:00 37.1 149/83 90 07/02/16 04:48 20 Room Air 07/01/16 05:09 2.00 Intake and Output 07/01/16 07/01/16 07/02/16 Cumulative From/Thru 15:00 23:00 07:00 06/30/16 10:42 - 07/02/16 06:22 Intake Total 760 ml 200 ml 1160 ml Output Total 600 ml 1700 ml Balance 160 ml 200 ml -540 ml Intake Oral 760 ml 200 ml 1160 ml Output Urine Total 600 ml 1700 ml # Voids 1 1 # Bowel Movements 1 0 1 Exam [address] to place and person but disoriented to time General: Alert, Cooperative, No Acute Distress Head: Normal Eyes: PERRLA, EOMI Nose: Mucous Membr Moist/[place] Mouth: Mucous Membr Moist/[place] Neck: Supple Chest & Lungs: Chest Wall Normal, Clear to auscultation bilateral Cardiovascular: Regular Rate/Rhythm Abdomen: Non-tender, Non-distended, Normoactive bowel tones, Soft Extremities: No cyanosis/clubbing. Trace bilateral lower extremity edema Neurological: Grossly Neurologically Intact, Cranial Nerves 2-12 Intact, Normal Speech, Strength Normal 4/4 ext IVs and Medications Medications Reviewed: Medications were reviewed in detail Lab and Diagnostics Result Diagram: 07/01/16 0510 07/02/16 0552 X-Rays, CTs and MRIs PROCEDURE: MRI BRAIN WITHOUT CONTRAST ([id number]) IMPRESSION: 1. Increased restricted diffusion within the left frontal lobe consistent with acute or subacute infarct. 2. No other acute intracranial findings. These findings were discussed with Dr. Corral at 3:30 PM on 06/30/16 Dictated by: Fatemeh Rizo M.D. on 06/30/2016 at 15:48 PROCEDURE: X-RAY CHEST, TWO VIEWS ([id number]) IMPRESSION: 1. Increased pulmonary vascularity suggestive of edema. Bibasilar coarsened prominence as above. This may represent focal edema versus superimposed airspace disease such as developing pneumonia/atelectasis. Dictated by: Gillian Shaikh M.D. on 06/30/2016 at 11:46 Assessment & Plan 66-year-old lady with past medical history of Afib, hypertension and glaucoma was brought in by daughter because of continued confusion for the last 2 weeks # Acute to subacute left frontal stroke. Present on admission. - History of A. fib with unclear anticoagulation compliance. - Appreciate neurology consult. Will followup with recommendations - Continue with Aspirin and atorvastatin for now - PT/OT/ST - Echocardiogram: "EF 55-60%. Mid to distal anteroseptum, mid to distal inferoseptum, and distal inferior wall have severe hypokinesis. No thrombus noted in the left ventricle" - Continue with blood pressure control - Avoid anticoagulation for A-Fib for now. Per neurology consult: "wait until the end of this week before resuming Pradaxa" # Acute kidney injury. Mild. Not present on admission. Resolved - Avoid nephrotoxic medications # Acute Hypokalemia. Present on admission. - Replete and followup # Suspected left lower lobe aspiration pneumonitis on admission. - Afebrile, no leukocytosis, rhonchi on left lower chest - Possible aspiration pneumonitis, pneumonia unlikely. - Continue to hold antibiotics for now. Consider empiric antibiotics if any fever # Atrial fibrillation, rate controlled - Unclear when she was diagnosed and if she is compliant with Pradaxa. - Resume anticoagulation at end of week (as noted above) - Consider cardiology consult as outpatient # Recent cognitive decline and confusion - Most likely due to subacute CVA, - Reportedly started on donepezil recently. Dispo: ? inpatient rehab vs home in 1-2 days Yosvany Tesfaye Jul 02, 2016 13:30
--- NOTE | 2016-07-02 14:57 | NUR ---
Social Work-continued d/c planning: Data:EMR reviewed. Pt is on day 2 of hospitalization for CVA per H&P. CHIKA met with pt and daughter Kerri [phone] earlier and discussed inpt rehab recommendation. Daughter found SW and requested that [facility] be first choice and [facility] be second choice. Daughter would also like SW to call pt's Rahul [phone] who resides in [place] with pt, but pt was up visiting daughter. SW provided with update and explained how insurance covers inpt rehab. agreeable to plan. or daughter will be able to stay with pt post rehab stay. UR specialist to send referrals to both facilities. Daughter agreeable to providing transport at discharge. SW will continue to follow. Assessment:Pt who would benefit from inpt rehab. Plan:[facility]( 1st choice) and [facility] inpt rehab( second choice) have been faxed. SW will continue to follow. KIKO Madrigal
--- NOTE | 2016-07-02 16:19 | NUR ---
faxed clinicals to [facility].
--- NOTE | 2016-07-02 17:02 | NUR ---
Ambulation/mentation Patient took a walk around hallway with assistance. Able to ambulate well, pt able to distinguish certain items (cup, pencil) but is still forgetful of place-was asked three times, answers were: i dont know, medical center, and lastly, never mind. patient is alert but not oriented-still is forgetful and confused at times. Pt is now sitting up in chair. Call light within reach. Addendum: 07/02/16 at 1821 by OSEAS DAVENPORT RN Agree with above note. Zeyad Davenport RN
[2016-07-03] VITALS (7 sets, daily range): BP systolic 155–178; BP diastolic 73–83; PULSE 61–84; RESP 20–23; O2SAT 92–95
[2016-07-03] MEDS: Heparin 5,000 Unit/mL Inj SUBQ SCH ×3 (00:14→17:30)
--- NOTE | 2016-07-03 03:04 | NUR ---
Behavior/Respiratory Patient pleasant and cooperative with care so far this shift. Does not initiate conversation, but does answer questions with yes or no answers. Able to follow some commands, but noted to have difficulty with squeezing hands during assessment. No s/sx of pain, FELDT= 0. Noted to be 85% on RA at beginning of shift. Placed on 4L NC, O2 up to 94%. Grand alarm in place for safety.
[2016-07-03 06:07] LABS: Mean Corpuscular Hemoglobin 29.4 pg (27.0-35.0); Mean Corpuscular Volume 91.2 fL (81-100)
[2016-07-03] MEDS: 0.9% Sodium Chloride 1,000 ML IV SCH ×2 (08:20→21:40)
[2016-07-03] MEDS: PARoxetine 20 mg Tablet PO SCH (09:08)
[2016-07-03] MEDS: Diltiazem CD 180 mg ER24 Capsule PO SCH (09:08)
--- NOTE | 2016-07-03 10:52 | NUR ---
cognition pt has flat affect, answers with one word answers usually, speech is clear, no problems with swallow noted. Still fairly confused, which is apparent when asked a direct question. She did not know where she was, nor her address. She thought she is currently living in [place], [place]. She did know who was president, but had to think about it for a minute.
--- NOTE | 2016-07-03 11:17 | NUR ---
received call from Delilah Reese, who indicated pt was appropriate for admit. Faxed megan. [facility] for Delilah, to advise pt is ready for dc today. Addendum: 07/03/16 at 1345 by SILVIA CAMERON SS faxed brain MRI results to Delilah.
--- NOTE | 2016-07-03 14:51 | PCM.PNMED ---
Subjective Date of Service Jul 03, 2016 Subjective Denies any complaints or discomfort. Denies any weakness, numbness, change in vision, confusion. Exam Vital Signs Vital Sign - Last Date Time Temp Pulse Resp B/P Pulse Ox O2 Delivery O2 Flow Rate FiO2 07/03/16 08:33 36.6 71 20 157/79 92 Nasal Cannula 4.00 Intake and Output 07/02/16 07/02/16 07/03/16 Cumulative From/Thru 15:00 23:00 07:00 06/30/16 10:42 - 07/03/16 05:18 Intake Total 1300 ml 400 ml 2860 ml Output Total 200 ml 1900 ml Balance 1100 ml 400 ml 960 ml Intake Oral 800 ml 400 ml 2360 ml IV Total 500 ml 500 ml Output Urine Total 200 ml 1900 ml # Voids 2 2 5 # Bowel Movements 1 [address] and person but continues to be disoriented to time General: Alert, Cooperative, No Acute Distress Head: Normal Eyes: PERRLA, EOMI Nose: Mucous Membr Moist/[place] Mouth: Mucous Membr Moist/[place] Neck: Supple Chest & Lungs: Chest Wall Normal, Clear to auscultation bilateral Cardiovascular: Regular Rate/Rhythm Abdomen: Non-tender, Non-distended, Normoactive bowel tones, Soft Extremities: No cyanosis/clubbing. Trace bilateral lower extremity edema Neurological: Grossly Neurologically Intact, Cranial Nerves 2-12 Intact, Normal Speech, Strength Normal 06/10 ext IVs and Medications Medications Reviewed: Medications were reviewed in detail Lab and Diagnostics Result Diagram: 07/03/16 0525 07/03/16 0525 X-Rays, CTs and MRIs PROCEDURE: MRI BRAIN WITHOUT CONTRAST ([id number]) IMPRESSION: 1. Increased restricted diffusion within the left frontal lobe consistent with acute or subacute infarct. 2. No other acute intracranial findings. These findings were discussed with Dr. Corral at 3:30 PM on 06/30/16 Dictated by: Fatemeh Rizo M.D. on 06/30/2016 at 15:48 PROCEDURE: X-RAY CHEST, TWO VIEWS ([id number]) IMPRESSION: 1. Increased pulmonary vascularity suggestive of edema. Bibasilar coarsened prominence as above. This may represent focal edema versus superimposed airspace disease such as developing pneumonia/atelectasis. Dictated by: Gillian Shaikh M.D. on 06/30/2016 at 11:46 Assessment & Plan 66-year-old lady with past medical history of Afib, hypertension and glaucoma was brought in by daughter because of continued confusion for the last 2 weeks # Acute to subacute left frontal stroke. Present on admission. - History of A. fib with unclear anticoagulation compliance. - Appreciate neurology consult. Will followup with recommendations - Continue with Aspirin and atorvastatin for now - PT/OT/ST - Echocardiogram: "EF 55-60%. Mid to distal anteroseptum, mid to distal inferoseptum, and distal inferior wall have severe hypokinesis. No thrombus noted in the left ventricle" - Continue with blood pressure control - Avoid anticoagulation for A-Fib for now. Per neurology consult: "wait until the end of this week before resuming Pradaxa" - Because of HANNA unable to obtain CTA brain as was initially recommended by neurology consult. As per discussion with Dr. Wood on 07/01 MRA of the brain was instead obtained. # Acute kidney injury. Mild. Not present on admission. Resolved - Avoid nephrotoxic medications # Acute Hypokalemia. Present on admission. - Replete and followup # Suspected left lower lobe aspiration pneumonitis on admission. - Afebrile, no leukocytosis, rhonchi on left lower chest - Possible aspiration pneumonitis, pneumonia unlikely. - Continue to hold antibiotics for now. Consider empiric antibiotics if any fever # Atrial fibrillation, rate controlled - Unclear when she was diagnosed and if she is compliant with Pradaxa. - Resume anticoagulation at end of week (as noted above) - Consider cardiology consult as outpatient # Recent cognitive decline and confusion - Most likely due to subacute CVA, - Reportedly started on donepezil recently. Dispo: ? inpatient rehab vs home in 1-2 days pending insurance approval. Per patient's daughter's request we have setup patient with a new PCP at residency clinic next week (see d/c section of records) Yosvany Tesfaye Jul 03, 2016 14:51
--- NOTE | 2016-07-03 17:45 | NUR ---
episode 5 beats Vtach/ Oxygen pt had brief episode 5 beats VT, not symptomatic, BP 155/73, Tele has been Afib 70-80s all shift but with lots of ectopy, multifocal PVCs. Also of note, have been unable to wean her from Oxygen, she runs low to mid 80s on RA, (she keeps removing O2) 92-94% on 4L per NC
--- NOTE | 2016-07-03 18:52 | DRSVH ---
PROCEDURE: CT BRAIN WITHOUT CONTRAST ([id number]) INDICATIONS: CVA, eval for hemorrhage prior to Pradexa TECHNIQUE: Noncontrast 4.5 mm thick angled axial sections acquired from the foramen magnum to the vertex, with c oronal reformats. COMPARISON: , MR, MR BRAIN WO CON, 06/30/2016, 13:50. , CT, CT BRAIN WO CON, 06/30/2016, 11:45. FINDINGS: Image quality: Mood by motion artifact. CSF spaces: Basal cisterns are patent. No extra-axial fluid collections. The ventricles are symmet deon in size and shape. Brain: No intracranial bleeds or masses. Hypodensity in left frontal lobe compatible with evolving subacute infarct is noted. There is cerebral volume loss for age, with resultant ventricular and sul belem prominence. There are periventricular and deep white matter chronic small vessel ischemic change s. There is intracranial internal carotid artery atherosclerosis. Skull and face: Calvarium and visualized facial bones appear intact, without suspicious lesions. Sinuses: Visualized sinuses and mastoids are clear. IMPRESSION: No gross evidence of intracranial hemorrhage within limitations caused by patient motion . Dictated by: Dea Smiht MD, PhD on 07/03/2016 at 18:48 Approved by: Dea Smith MD, PhD on 07/03/2016 at 18:51
--- NOTE | 2016-07-03 19:22 | PROG NOTE ---
[address] [address] PROGRESS NOTE PATIENT: NIRANJAN DAVIES : 1950 MR#: [id number] ADMIT: 06/30/2016 JOB ID: [id number] DATE: 07/03/2016 REQUESTING PHYSICIAN: Yosvany Tesfaye MD. CLINICAL HISTORY: The patient is a 66-year-old female with subacute stroke affecting the left frontal and parietal lobes. Imaging studies of the brain showed subacute infarct. MR angiogram was completed on July 01, 2016 that shows no intracranial stenosis. Extracranial vessels were examined by carotid ultrasound which showed no high-grade stenosis. The patient was questionably off of Pradaxa for atrial fibrillation at that time and has been held due to acute stroke. The patient has been on 325 mg aspirin. Blood pressure remains elevated, but she is no longer on permissive blood pressure. She remains confused and is on oxygen. Her daughter is not at the bedside to help provide additional history. Laboratory studies from today show normal hemoglobin and hematocrit. No elevation in white count. Mildly elevated creatinine at 1.22 and glucose elevated at 125. Dr. Tesfaye's notes suggest aspiration pneumonia is possible. REVIEW OF SYSTEMS: as above, continued aphasia. All other system reviewed and reported as negative. OBJECTIVE: Vital signs: Blood pressure 155/73, heart rate 84, pulse oximetry is 93% on 4 L nasal cannula. Atrial fibrillation is noted on telemetry. Head: Normocephalic, atraumatic. No evidence of carotid bruits. Lungs with decreased breath sounds. Irregular heart rate. No edema n the lower extremities. Neurologic examination: The patient is alert and oriented x3, with language and speech intact and fluent, at times halting. Recent and remote memory as well as fund of knowledge are reasonably intact, comprehension appears improved. Aphasia at times limits answers to one word, with coaxing word substitution with correction results and frustration. Cranial nerves: Pupils equally reactive to light and accommodation. Extraocular movements intact. No facial asymmetry. Sensation intact on the face bilaterally. Tongue midline. Palate raises symmetrically. SCM and shoulder shrug as well as hearing are intact. Motor strength is intact throughout upper and lower extremities. Deep tendon reflexes 2+ throughout. Sensation intact to touch, all four extremities. No left-right confusion. Coordination intact. Gait: Patient has walked with physical therapy. LABORATORY STUDIES AND IMAGING STUDIES: As above. ASSESSMENT AND RECOMMENDATION: The patient is a 66-year-old female with subacute left frontal parietal lobe stroke resulting in severe aphasia from which she appears to be recovering. She should restart Pradaxa tomorrow. Given the report of intermittent confusion, I will request a head CT to confirm no bleeding before initiating Pradaxa. I agree with rehab. The patient's aphasia appears to be clearing however speech therapy will be essential for full recovery. Blood pressure remains elevated. This should be brought down to avoid risk of hemorrhage. There is no indication for permissive hypertension given the length of time since her stroke and the lack of any intracranial or extracranial stenosis. Head CT will be requested prior to initiation of Pradaxa. If no evidence of hemorrhage I recommend restartng Pradexa. Once Pradaxa is started, aspirin should be discontinued. My recommendations were discussed with her daughter by phone. After rehab, the leatha lucas be seen by her PCP and health benefits specialist for management. Will sign off for now. Please call if needed. EVITA
[2016-07-04 00:04] VITALS: BP 164/77; PULSE 73; RESP 19; O2SAT 93
[2016-07-04] MEDS: Heparin 5,000 Unit/mL Inj SUBQ SCH ×2 (00:45→09:11)
[2016-07-04 03:34] VITALS: PULSE 77
[2016-07-04 05:09] VITALS: BP 156/83; PULSE 70; RESP 20; O2SAT 93
--- NOTE | 2016-07-04 06:08 | NUR ---
Mentation Patient A&Ox3 this shift. Answering questions appropriately/accurately. Continues to have a flat affect, but cooperative with care. Denies any pain or discomfort. Up to BR with SBA. Haakon remains in place for safety.
[2016-07-04 08:00] VITALS: PULSE 86
--- NOTE | 2016-07-04 08:03 | NUR ---
Per Delilah at [facility], they are able to accept pt with Dr. Torres to follow. Dr would like to know plan to restart pradaxa. RN to RN number is [phone].Advised NEWSWRITER
[2016-07-04 08:30] VITALS: BP 162/77; PULSE 69; RESP 20; O2SAT 94
[2016-07-04] MEDS ORDERED: Dabigatran 150 mg Capsule PO SCH (08:30)
[2016-07-04] MEDS: Diltiazem CD 180 mg ER24 Capsule PO SCH (09:11)
[2016-07-04] MEDS: PARoxetine 20 mg Tablet PO SCH (09:11)
[2016-07-04] MEDS: 0.9% Sodium Chloride 1,000 ML IV SCH (09:16)
--- NOTE | 2016-07-04 09:58 | PCM.DIMED ---
Discharge Instructions Date of Service Jul 04, 2016 Dates of Hospitalization Jun 30, 2016 at 17:02 Discharge Diagnosis Discharge Diagnosis Primary diagnosis Acute to subacute left frontal stroke. resolved Acute kidney injury. Acute Hypokalemia. Secondary diagnosis Suspected aspiration pneumonitis Chronic Atrial fibrillation Diet Low fat, Low Sodium Activity Outpatient Physical Therapy Call your provider Weakness (unilateral) Patient Instructions Follow-up plan You will going to rehab for further therapy Continue taking Pradaxa to prevent an further Stroke Follow-up Provider: Sergei Torres MD Fuimaono, Malik MD Jul 04, 2016 09:58
[2016-07-04] MEDS ORDERED: AMLO5TAB2 PO (09:59)
[2016-07-04] MEDS ORDERED: ATOR10TA66 PO (09:59)
[2016-07-04] MEDS ORDERED: DABI150C PO (10:00)
--- NOTE | 2016-07-04 10:29 | NUR ---
Social Work-Readiness for Discharge Data: EMR reviewed. Pt is on day 4 of hospitalization for CVA per H&P. SW spoke with pt and daughter Kerri [phone] regarding discharge plan. Pt has been accepted at [facility] in [place] with MD Torres to follow. Pt and daughter agreeable to this. Daughter to transport pt to [facility] today. Pt to discharge to [facility], daughter to transport POV. SW will continue to follow. Assessment: Pt who would benefit from inpt rehab. Plan: [facility] has accepted pt for rehab with MD Torres to follow. Pt to discharge with daughter to transport POV. SW will continue to follow. KIKO Moore
--- NOTE | 2016-07-04 11:46 | NUR ---
Social Work-Discharge Data: EMR reviewed. Pt is on day 4 of hospitalization for CVA per H&P. CHIKA spoke with pt and daughter Kerri [phone] regarding discharge plan. Pt has been accepted at [facility] in [place] with MD Torres to follow. Pt and daughter agreeable to this. UR Specialist spoke with Daughter regarding transportation, daughter states that she will transport pt directly to [facility], leaving [facility] at 1300. UR Specialist created packet and faxed orders, updated Yeimi at [facility]. All updated and agreeable to plan. Pt to discharge to [facility], daughter to transport POV. Assessment: Pt who would benefit from in rehab. Plan: [facility] accepted pt for rehab with MD Torres to follow. Pt to discharge with daughter to transport POV leaving [facility] at 1300. ANIVAL, RN, pt/family, and [facility] all updated and agreeable to plan. Anaid Elam, PLATFORM POWER TECHNICIAN
--- NOTE | 2016-07-04 13:31 | NUR ---
Discharge She discharged at 1325 with her daughter who was to drive her to [facility]. Discharged on 4L of O2 via nasal cannula. Discharge paperwork discussed and given to her daughter to be give to the facility (prescriptions, instructions, H/P). Her IV and telemetry were discontinued intact. Nurse to nurse report called to [phone]. She thanked staff for their care.
--- NOTE | 2016-07-05 00:54 | PCM.DC.MED ---
Discharge Summary Date of Service Jul 04, 2016 Dates of Hospitalization Date of Hospital Admission Jun 30, 2016 at 17:02 Date of Discharge: Jul 04, 2016 Providers: Admitting Physician: Brijesh Tolentino MD Primary Care Physician: Nopalayna Attending Physician: Brijesh Tolentino MD Diagnosis at Time of Discharge Diagnosis at Time of Discharge Primary diagnosis Acute to subacute left frontal stroke. resolved Acute kidney injury. Acute Hypokalemia. Secondary diagnosis Suspected aspiration pneumonitis Chronic Atrial fibrillation Consultations Neurology: Dr Soto Procedures XRay, CTs & MRIs PROCEDURE: MRI BRAIN WITHOUT CONTRAST ([id number]) IMPRESSION: 1. Increased restricted diffusion within the left frontal lobe consistent with acute or subacute infarct. 2. No other acute intracranial findings. These findings were discussed with Dr. Corral at 3:30 PM on 06/30/16 Dictated by: Fatemeh Rizo M.D. on 06/30/2016 at 15:48 PROCEDURE: X-RAY CHEST, TWO VIEWS ([id number]) IMPRESSION: 1. Increased pulmonary vascularity suggestive of edema. Bibasilar coarsened prominence as above. This may represent focal edema versus superimposed airspace disease such as developing pneumonia/atelectasis. Dictated by: Gillian Shaikh M.D. on 06/30/2016 at 11:46 Brief History History limited due to patient's confusion. Daughter who lives in [facility] to pick her kids. her number not registered. Patient from [place]. History obtained from ED physician and chart 66-year-old lady with past medical history of Afib, hypertension and glaucoma was brought in by daughter because of continued confusion for the last 2 weeks. per ED note "She is unable to follow conversations, needs inordinate amount of explanation for simple tasks, and other aspects of generalized confusion. The patient saw her PCP in [place] 3 days ago who thought she may have had a stroke and was recommended to "get a blood draw and go back to see her in 1 week". A urine sample was not obtained at that time. She was recently placed on some unspecified memory medication? donepezil . She denies focal numbness or weakness, dysarthria, fever, chills, nausea, vomiting, abdominal pain, chest pain, shortness of breath. She apparently spends most of her time in bed watching TV which is normal for her. There is a family history of dementia in her mother at age 80. She denies alcohol or drug use. At time of examination, patient not oriented to place or person.answers in yes and no . Repeats whatever is asked . Patient says ' no ' to recent cough or worsening dyspnea. per ED physician patient was told she has A. fib and was prescribed pradaxa but did not take it. ED course: Initial BP 192/109, saturating 89% on room air, in A. fib rate controlled, chest x-ray congestion versus pneumonia, MRI shows left frontal lobe acute/subacute infarct. Initial NIHSS 3 , not candidate for TPA. Dementia is requested for acute stroke. Hospital Course 1. Acute to subacute left frontal stroke. Present on admission. - History of A. fib with unclear anticoagulation compliance. - Appreciate Dr Soto consult - Pradaxa was held till today when repeat CT head showed no bleeding - Aspirin was initiated on admission and stopped today with initiation of Pradaxa to decreased risk of intracranial bleeding - Continue with Pradaxa (restarted today) and atorvastatin - Echocardiogram: "EF 55-60%. Mid to distal anteroseptum, mid to distal inferoseptum, and distal inferior wall have severe hypokinesis. No thrombus noted in the left ventricle" - Continue with blood pressure control - discharge to inpatient rehab 2 Acute kidney injury. Mild. Not present on admission. Resolved - Improved with just IV fluids resuscitations, likely pre renal azotemia 3 Acute Hypokalemia. Present on admission. - Replete and resolved, no arrhythmia noted 4 Suspected left lower lobe aspiration pneumonitis on admission. - Afebrile, no leukocytosis, rhonchi on left lower chest - Possible aspiration pneumonitis, pneumonia unlikely. - Continue to hold antibiotics for now. 5 Atrial fibrillation, rate controlled - Unclear when she was diagnosed and if she is compliant with Pradaxa. - No rapid ventricular response in house 6 Recent cognitive decline and confusion - Most likely due to subacute CVA, - Reportedly started on donepezil recently. . Exam Vital Signs (Last) Date Time Temp Pulse Resp B/P Pulse Ox O2 Delivery O2 Flow Rate FiO2 07/04/16 08:30 36.7 69 20 162/77 94 Nasal Cannula 4.00 Exam General: Alert, Cooperative, No Acute Distress Head: Normal Eyes: PERRLA, EOMI Nose: Mucous Membrane Moist/[place] Mouth: Mucous Membrane Moist/[place] Neck: Supple Chest & Lungs: Chest Wall Normal, Clear to auscultation bilateral Cardiovascular: Regular Rate/Rhythm Abdomen: Non-tender, Non-distended, Normoactive bowel tones, Soft Extremities: No cyanosis/clubbing. Trace bilateral lower extremity edema Neurological: Grossly Neurologically Intact, Cranial Nerves 2-12 Intact, Normal Speech, Strength Normal 06/10 ext Test 06/30/16 11:34 07/01/16 05:10 07/02/16 05:52 07/03/16 05:25 Prothrombin Time 13.3sec (8.1-12.5) Prothromb Time International Ratio 1.24ratio Urine Color Yellow (YELLOW) Urine Appearance Hazy (CLEAR,HAZY) Urine pH 6.5 (5.0-8.0) Urine Specific Colver 1.025 (1.003-1.035) Urine Protein 100mg/dL (NEG,TRACE) Urine Glucose (UA) Negativemg/dL (NEGATIVE) Urine Ketones Negativemg/dL (NEGATIVE) Urine Occult Blood Trace (NEGATIVE) Urine Nitrite Negative (NEGATIVE) Urine Bilirubin Negative (NEGATIVE) Urine Urobilinogen Normalmg/dL (NORMAL) Urine Leukocyte Esterase Negative (NEGATIVE) Urine RBC 3-10/hpf (0-2) Urine WBC 0-5/hpf (0-5) Urine Epithelial Cells Occasional/hpf (NONE-MOD) Urine Crystals None seen (NONE SEEN) Urine Bacteria None/hpf (NONE-FEW) Urine Hyaline Casts Occasional/lpf (NONE) Urine Granular Casts None seen (NONE SEEN) Urine Waxy Casts None seen (NONE SEEN) Urine Red Blood Cell Casts None seen (NONE SEEN) Urine White Blood Cell Casts None seen (NONE SEEN) Urine Mucus Present (None Seen) Urine Trichomonas None seen (NONE SEEN) Urine Yeast None (NONE SEEN) Urinalysis Comment None Urine Culture Reflexed Not indicated Thyroid Stimulating Hormone (TSH) 2.900uIU/mL (0.450-4.500) Hold Julian Top Tube Received (Received) Neutrophils (%) (Auto) 75.7% (40-74) Lymphocytes (%) (Auto) 10.6% (14-46) Monocytes (%) (Auto) 10.9% (4-12) Eosinophils (%) (Auto) 1.1% (0-5) Basophils (%) (Auto) 1.2% (0-3) Hemoglobin A1c 7.0% (4.8-5.6) Total Bilirubin 1.1mg/dL (0.0-1.2) Aspartate Amino Transf (AST/SGOT) 21U/L (0-50) Alanine Aminotransferase (ALT/SGPT) 10U/L (0-32) Alkaline Phosphatase 46U/L (25-165) Total Protein 7.0g/dL (6.4-8.4) Albumin 3.6g/dL (3.4-5.0) Triglycerides Level 92mg/dL (0-149) Cholesterol Level 149mg/dL (100-199) LDL Cholesterol, Calculated 88.600mg/dL (0-99) VLDL Cholesterol 18.400mg/dL HDL Cholesterol 42mg/dL (>39) Cholesterol/HDL Ratio 3.55 (0.0-4.4) Magnesium Level 2.0mg/dL (1.6-2.6) Troponin T < 0.010ug/L (0.0-0.011) Pro-B-Type Natriuretic Peptide 1324pg/mL (0-301) Procalcitonin 0.11ng/mL (0.00-0.08) White Blood Count 7.9th/mm3 (3.8-10.1) Red Blood Count 4.89mil/mm3 (3.90-5.20) Hemoglobin 14.4g/dL (12.0-15.6) Hematocrit 44.6% (35.0-46.0) Mean Corpuscular Volume 91.2fL (81-100) Mean Corpuscular Hemoglobin 29.4pg (27.0-35.0) Mean Corpuscular Hemoglobin Concent 32.3% (32.0-37.0) Red Cell Distribution Width 15.0% (12.3-15.4) Platelet Count 290bil/L (150-400) Test 07/04/16 05:18 Sodium Level 141mEq/L (134-144) Potassium Level 3.3mEq/L (3.5-5.2) Chloride Level 98mEq/L (97-108) Carbon Dioxide Level 28mmol/L (18-29) Blood Urea Nitrogen 23mg/dL (8-27) Creatinine 0.96mg/dL (0.57-1.00) Estimat Glomerular Filtration Rate 83mL/min (>59) Glucose Level 134mg/dL (60-99) Calcium Level 9.7mg/dL (8.5-10.1) Discharge Medications Discharge Medications Amlodipine (Amlodipine) 5 Mg Tablet 10 MG PO DAILY Prescribed by: JASON CRUZ MD Atorvastatin Calcium (Atorvastatin Calcium) 10 Mg Tablet 40 MG PO HS Prescribed by: JASON CRUZ MD Dabigatran Etexilate Mesylate (Pradaxa) 150 Mg Capsule 150 MG PO BID (Reported) Dabigatran Etexilate Mesylate (Pradaxa) 150 Mg Capsule 150 MG PO BID Prescribed by: JASON CRUZ MD Diltiazem ER (Diltiazem ER) 180 Mg Capsule.er 180 MG PO QAM (Reported) Donepezil (Donepezil) 5 Mg Tablet 5 MG PO BID (Reported) Hydrochlorothiazide (Hydrochlorothiazide) 50 Mg Tablet 50 MG PO QAM (Reported) Latanoprost (Latanoprost) 2.5 Ml Drops 1 GTT BOTH_EYES HS (Reported) Paroxetine (Paroxetine) 40 Mg Tablet 40 MG PO QAM (Reported) Followup Plan Disposition: [facility] Follow-up plan You will going to rehab for further therapy Continue taking Pradaxa to prevent an further Stroke Discharge Diet: Low fat, Low Sodium Discharge Activity: Outpatient Physical Therapy Follow-up Provider: Sergei Torres MD Time spent 35 minutes spend copies to: Sergei Torres MD Fuimaono, Malik MD Jul 04, 2016 10:01
== END 2016-07-04 13:27 | DRG 64 ==
LOC: SED 10:25 → OSC 17:02
PROVIDERS: ADMIT Internal Medicine; ATTEND Internal Medicine
DX: I63.412 Cerebral infarction due to embolism of left middle cerebral artery (principal); J69.0 Pneumonitis due to inhalation of food and vomit; N17.9 Acute kidney failure, unspecified; I16.0 Hypertensive urgency; I10 Essential (primary) hypertension; I48.2 Chronic atrial fibrillation; E87.6 Hypokalemia; H40.9 Unspecified glaucoma; R47.01 Aphasia

== ENCOUNTER 2016-08-18 11:59 | Inpatient (IN) | payer MEDICARE, OTHER ==
[2016-08-18] VITALS (7 sets, daily range): BP systolic 134–157; BP diastolic 54–77; PULSE 70–82; RESP 18–22; O2SAT 93–99
[~2016-08-18] VITALS: Ht 152.4 cm; Wt 75.6 kg
[~2016-08-18 11:59] MED LIST: AMLO5TAB2 PO; ATOR10TA66 PO; DABI150C PO; DILT180C81 PO; DONE5TAB30 PO; HYDR50TA3 PO; LATA2.5D6 BOTH_EYES; PARO40TA3 PO
--- NOTE | 2016-08-18 12:19 | ED.REPORT ---
HPI-General Illness Date of Service Aug 18, 2016 ED Provider: Lauren Bermudez MD Patient is a 66 y/o female w/ a hx of HTN, chronic A-Fib, [place], and CVA presenting to the ED with her daughter after being referred by Urgent care c/o swollen legs onset last night. Associated symptoms include intermittent "burning " and "heavy" chest pain onset 1 week ago. The chest pain worsens with exacerbation. She was taking chewable tablets to treat what she believed was heart burn. She denies SOB, fever, or any other symptoms at this time. Leg swelling was reduced after she took her night medication and elevated her legs, per daughter Patient was brought to the ED on June 30, 2016 for CVA and was hospitalized for 4 days. Patient is currently living with her daughter. She is on oxygen, 3 L, at home. Patient does not have a PCP as she is waiting for placement in the [facility]. Nursing Notes Stated Complaint: SWOLLEN LEG,ON AND OFF CP,SENT FROM Chief Complaint: Chest Pain Nursing Notes Reviewed: Yes Allergies: Coded Allergies: No Known Allergies (Unverified , 06/30/16) Scheduled Atorvastatin Calcium (Atorvastatin Calcium) 10 Mg Tablet 40 MG PO HS Dabigatran Etexilate Mesylate (Pradaxa) 150 Mg Capsule 150 MG PO BIDWM Diltiazem ER (Diltiazem ER) 180 Mg Capsule.er 180 MG PO QAM Docusate Sodium (Colace) 100 Mg Capsule 100 MG PO BID Furosemide (Furosemide) 40 Mg Tablet 60 MG PO BIDBL Hydralazine (Hydralazine) 10 Mg Tablet 10 MG PO QID Hydrochlorothiazide (Hydrochlorothiazide) 50 Mg Tablet 50 MG PO QAM Latanoprost (Latanoprost) 2.5 Ml Drops 1 GTT BOTH_EYES HS Lisinopril (Lisinopril) 20 Mg Tablet 20 MG PO BID Metoprolol Tartrate (Metoprolol Tartrate) 25 Mg Tablet 25 MG PO BID Paroxetine (Paroxetine) 40 Mg Tablet 20 MG PO BIDWM Potassium Chloride (Potassium Chloride) 20 Meq Tab.er.prt 40 MEQ PO BIDWM TAKE WITH FOOD Scheduled PRN Acetaminophen (Acetaminophen) 325 Mg Tablet 650 MG PO Q4H PRN PRN For Fever Loratadine (Claritin) 10 Mg Capsule 10 MG PO DAILY PRN PRN ALLERGIES General Time Seen by MD: 12:17 Chief Complaint Chest pain, Other (Swollen legs) Hx Obtained From: Patient, Daughter Arrived By: Walk-in Onset Occurred: Yesterday Recent Healthcare: Recent doctor visit, Recent hospitalization Past Medical History Past Medical History Notes: [facility] PCP: [facility] Past Medical History Glaucoma Hypertension Acute to subacute left frontal stroke. resolved, 07/05/16 Suspected aspiration pneumonitis post CVA 07/05/16 Chronic Atrial fibrillation Reports: Depression Past Surgical History None reported Smoking History Unknown if Ever Smoker Social History Alcohol Use: Denies alcohol use Drug Use: Denies drug use Ambulatory Status Independent Review of Systems Full Review of Systems Constitutional: Denies: Fever Respiratory: Denies: Shortness of breath Cardiovascular: Reports: Chest pain Musculoskeletal: Reports: Extremity swelling (legs) Complete sys rev & neg: except as marked. Physical Exam Vital Signs Vital Signs Date Time Temp Pulse Resp B/P Pulse Ox O2 Delivery O2 Flow Rate FiO2 08/18/16 15:21 70 22 134/54 95 Nasal Cannula 3 08/18/16 13:37 79 21 140/71 93 Nasal Cannula 3 08/18/16 12:09 36.7 76 20 157/73 93 Nasal Cannula 3 Initial VS: Reviewed General/Constitutional: Well-developed, Well-nourished Head / Eyes: Atraumatic, Normocephalic Neck: Full range of motion Skin: Warm, Dry Psychiatric: Mood/affect normal, Behavior normal, Normal thought content Respiratory / Chest: Atraumatic Crackles bilaterally bases Cardiovascular: No murmurs Heart Rate / Rhythm: Positive: Irreg irregular rhythm Lower Ext Edema: Positive: Left 2+, Right 1+ Per patient, L is typically more swollen than R Abdomen: Atraumatic, Soft, Non-tender well perfused Back: Atraumatic Neurologic: Oriented X3 mild expressive aphasia, no dysarthria Interpretation & Diagnostics Lab Results Interpretation Result Diagram: 08/18/16 1230 08/18/16 1230 Test 08/18/16 12:30 08/18/16 13:45 White Blood Count 10.2th/mm3 (3.8-10.1) Red Blood Count 4.83mil/mm3 (3.90-5.20) Hemoglobin 14.2g/dL (12.0-15.6) Hematocrit 44.0% (35.0-46.0) Mean Corpuscular Volume 91.1fL (81-100) Mean Corpuscular Hemoglobin 29.4pg (27.0-35.0) Mean Corpuscular Hemoglobin Concent 32.3% (32.0-37.0) Red Cell Distribution Width 15.6% (12.3-15.4) Platelet Count 352bil/L (150-400) Neutrophils (%) (Auto) 80.9% (40-74) Lymphocytes (%) (Auto) 9.0% (14-46) Monocytes (%) (Auto) 7.3% (4-12) Eosinophils (%) (Auto) 2.0% (0-5) Basophils (%) (Auto) 0.5% (0-3) Sodium Level 137mEq/L (134-144) Potassium Level 3.6mEq/L (3.5-5.2) Chloride Level 100mEq/L (97-108) Carbon Dioxide Level 24mmol/L (18-29) Blood Urea Nitrogen 14mg/dL (8-27) Creatinine 0.67mg/dL (0.57-1.00) Estimat Glomerular Filtration Rate 125mL/min (>59) Glucose Level 125mg/dL (60-99) Calcium Level 9.4mg/dL (8.5-10.1) Magnesium Level 1.8mg/dL (1.6-2.6) Total Bilirubin 0.8mg/dL (0.0-1.2) Aspartate Amino Transf (AST/SGOT) 14U/L (0-50) Alanine Aminotransferase (ALT/SGPT) 10U/L (0-32) Alkaline Phosphatase 58U/L (25-165) Troponin T < 0.010ug/L (0.0-0.011) Pro-B-Type Natriuretic Peptide 3076pg/mL (0-301) Total Protein 7.7g/dL (6.4-8.4) Albumin 3.2g/dL (3.4-5.0) Hold Julian Top Tube Received (Received) Hold Urine Received (Received) ECG Interpretation ECG Interpretation: Atrial fibrillation w/ a rate of 66 Right ventricular hypertrophy Abnormal T, lateral leads Similar to 06/30/16 Time: 12:32 Interpreted by: ED physician X-Ray Chest Interpretation Chest Xray Interpretation: IMPRESSION: Moderate cardiomegaly as before, with mild interstitial pulmonary edema to suggest early congestive heart failure. Dictated by: Aaron Burgos M.D. on 08/18/2016 at 12:12 Approved by: Aaron Burgos M.D. on 08/18/2016 at 12:14 View: Portable, 1 view Interpretation / Wet Read by: Interpret - Radiologist Re-Eval/Medical Decision Med Decision/Clinical Course Patient presents with signs and symptoms of worsening congestive heart failure. It appears that there has been a medication and medication mixup. In most recent visits with her primary care physician she was most increase her Lasix from 40 mg twice a day to 60 mg twice a day. When her daughter was sick medications at the pharmacy a prescription received was 25 mg of hydrochlorothiazide and no Lasix. The pharmacist recommended discontinuing Lasix and continue him hydrochlorothiazide. The patient's heart failure has predictably gotten significantly worse to the point where she is significantly hypoxic having chest pain significant lower extremity edema and in need of hospitalization. She has continued to have high E oxygen demands at 3-4 L at home since recent hospital discharge. It is unclear whether this is a mix of COPD or inadequately treated CHF. She had not been on oxygen prior to her hospital admission for stroke. 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 She was seen by her primary care physician at the residency clinic and recommended Lasix 60 mg twice a day with a note that she may need spironolactone. Prescription for Lasix and hydrochlorothiazide were transmitted to the pharmacy. Pharmacy apparently declined to prescribe both diuretics and did not give her her Lasix. She has not been taking Lasix for a number of weeks at this time Time of Eval: 14:35 Re-Evaluation/Progress Note: Rechecked patient. Discussed plan for admission. Patient understands and agrees with plan. All questions adressed at this time. Consultation : Consulted With: Hospitalist Call Returned at: 15:49 Note: will accept patient Counseled Regarding: Diagnosis, Lab results, Need for admission Discharge & Departure Primary Impression: CHF (congestive heart failure) Congestive heart failure type: unspecified congestive heart failure type Congestive heart failure chronicity: unspecified congestive heart failure chronicity Qualified Code: I50.9 - Heart failure, unspecified Disposition: ADMITTED TO HOSPITAL Discharge Condition All VS Reviewed: Yes Condition: Stable Referrals: NOPCP (PCP) [place]ul Attestation Portions of this note were transcribed by Ca Zee & James Sandy. I, Dr. Bermudez personally performed the history, physical exam and medical decision-making; I reviewed and confirmed the accuracy of the information in the transcribed note. Signed by: Ca Sandy., Scribe, 08/09/2016 and 15:00. Lauren Bermudez MD Aug 18, 2016 12:19 Ca Zee Aug 18, 2016 12:22 JAMES SANDY Aug 18, 2016 14:21
[2016-08-18 12:43] LABS: BASOPHILS % (AUTO) 0.5 % (0-3); MONOCYTES % (AUTO) 7.3 % (4-12); Mean Corpuscular Hemoglobin 29.4 pg (27.0-35.0); Mean Corpuscular Volume 91.1 fL (81-100); NEUTROPHILS % (AUTO) 80.9 % (40-74); Platelet Count 352 bil/L (150-400)
[2016-08-18] MEDS ORDERED: Furosemide 10 mg/mL 10 mL Inj IVPUSH ONE (12:50)
[2016-08-18 13:13] LABS: TROPONIN T < 0.010 ug/L (0.0-0.011)
--- NOTE | 2016-08-18 13:16 | DRSVH ---
PROCEDURE: X-RAY CHEST ONE VIEW, PORTABLE ([id number]) INDICATIONS: 66 year-old female with chest pain. TECHNIQUE: One view of the chest was acquired. COMPARISON: [facility], CR, XR CHEST 2VW, 06/30/2016, 11:20. FINDINGS: Surgical changes and devices: None. Lungs and pleura: No pleural effusions or pneumothorax. Lungs are clear, except for diffuse pulmona ry reticular interstitial prominence. Mediastinum: Mediastinal contours appear normal. Moderate cardiomegaly is unchanged. There is aorti c atherosclerosis. Bones and chest wall: No suspicious bony lesions. Overlying soft tissues appear unremarkable. IMPRESSION: Moderate cardiomegaly as before, with mild interstitial pulmonary edema to suggest early congestive heart failure. Dictated by: Aaron Burgos M.D. on 08/18/2016 at 12:12 Approved by: Aaron Burgos M.D. on 08/18/2016 at 12:14
[2016-08-18 13:19] LABS: Magnesium 1.8 mg/dL (1.6-2.6)
[2016-08-18] MEDS ORDERED: DOCU-41 PO (15:06)
[2016-08-18] MEDS ORDERED: HYDR-3938 PO (15:06)
[2016-08-18] MEDS ORDERED: FURO40TA4 PO (15:06)
[2016-08-18] MEDS ORDERED: LORA10CA PO (15:06)
[2016-08-18] MEDS ORDERED: LISI-567 PO (15:06)
[2016-08-18] MEDS ORDERED: ACET325T51 PO (15:06)
[2016-08-18] MEDS ORDERED: POTA20TA16 PO (15:06)
[2016-08-18] MEDS ORDERED: METO25TA6 PO (15:06)
[2016-08-18] MEDS ORDERED: Ondansetron 2 mg/mL 2 mL Inj IVPUSH PRN (15:50)
--- NOTE | 2016-08-18 18:54 | PCM.HPMED ---
Subjective Date of Service Aug 18, 2016 Primary Provider: Admitting Physician: Cathleen Woodward DO Primary Care Physician: Carmen Attending Physician: Cathleen Woodward DO Admit Status: From the Emergency Department Chief Complaint: Dyspnea History of Present Illness: This 66-year-old female with past medical history of heart failure of unknown type, pulmonary hypertension, CVA that happened 2 months ago that has left her aphasic, and chronic atrial fibrillation for which she is currently on Pradaxa, glaucoma, hypertension, aspiration pneumonia in June 2016, depression is presenting with chief complaint of dyspnea that has been ongoing for a few days. Is apparently seen at the residency clinic and then Lasix dose was increased from 40-60 mg however 25 mg of hydrochlorothiazide was sent to her drug store and she ended up having more swollen legs last night, she apparently described burning chest pain for one week to the Urgent Care doctor. ( she denies currently chest pain.) Elevating leg legs and night home medications have helped with swelling. Patient is alone by herself in the room and does not seem to recall details much as her short-term or long-term memory are not very well. She at one point thought she was here for a heart attack in June but then corrected herself saying it was for a stroke. She denies dyspnea, nausea, vomiting, fevers chills , chest pain, numbness tingling, abdominal pain. she says that her ankle edema is much better after 1 dose of 60 mg IV Lasix. She denies diarrhea or constipation. She says that she was able to lay down flat at home. She denies vision symptoms of vaginal bleeding and urinary symptoms. In the ER EKG revealed atrial fibrillation at the rate of 66, and abnormal T waves in lateral leads, chest x-ray showed moderate cardiomegaly and mild interstitial edema and troponin was negative, BNP was elevated at 3 076. Troponin was normal rest of her lab work was fairly unremarkable. Reviewing records she had a echocardiogram in 07/01/2016 that showed 55-60% ejection fraction, severe hypokinesis, biatrial severe enlargement, moderate tricuspid regurgitation, elevated left and right sided pressures, atrial fibrillation, pulmonary hypertension at 63 mmHg. 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 She is waiting to establish herself at the residency clinic. Per [facility] records, patient is unable to answer many questions due to a recent stroke, and a dx of alzheimers. Patient has increased swelling of the legs, and was told to come here to by one of the residency docs. Review of Systems: Gen.: Endorsing weight gain patient has not been having fevers and malaise Eyes: no visual disturbances or blurring vision HEENT: No nose/throat drainage, no pain in ears or throat, no hearing loss Lymph: No lymph nodes noted Cardiac: No chest pain, orthopnea, PND, palpitations , positive for pedal edema and +dyspnea on exertion Pulmonary: wheezing or bringing up of sputum + worsening dyspnea and cough, denies left-sided chest pain GI: No anorexia nausea vomiting blood or black in the stool : no dysuria hematuria urinary frequency or decrease in urine output Musculoskeletal: Joint swelling no joint pain no new muscle aches or back pain Neuro: No syncope, seizures no loss of consciousness no new focal weakness, numbness or tingling Psychiatric: New new anxiety insomnia or depression Endocrine: No new heat or cold intolerances polyuria or polydipsia Hematology: No lymphadenopathy or easy bleeding or bruising noted skin: No new rashes, stasis dermatitis Review of systems negative except as stated in the history of present illness and above. Allergies Coded Allergies: No Known Allergies (Unverified , 08/18/16) Home Medications Atorvastatin, Prilosec, Cardizem, Colace, furosemide, hydralazine, hydrochlorothiazide, Lantus, lisinopril, metoprolol, paroxetine, potassium chloride PMH Heart failure, CVA 2 months ago, aphasia, home oxygen is 2-3 L, chronic atrial fibrillation, glaucoma, hypertension, aspiration pneumonia, depression, pulmonary hypertension Surgical History None Family History Mom test with minerals MS diabetes Social History Occupation: she does not work lives with d Hx Alcohol Use: No Hx Substance Use: No Smoking Status: Former Smoker, Unknown if Ever Smoker Living Arrangement: with Family (his daughter) Exam Vital Signs Vital Sign - Last Date Time Temp Pulse Resp B/P Pulse Ox O2 Delivery O2 Flow Rate FiO2 08/18/16 17:48 36.7 70 22 134/54 95 Nasal Cannula 3 Exam Gen.: No acute distress,, laying in bed HEENT: Slight asymmetry in the left eye Heart: Irregular rate, no murmurs Lungs: Clear to auscultation bilaterally no crackles or wheezes Abdomen soft nontender nondistended normal bowel sounds Extremities: Positive ankle edema left greater than right Skin: Chronic hemosiderin changes bilaterally Neck: Negative for JVD and hepatojugular reflux Neuro: Alert and oriented to person and location but not to date(she did not recall after delay), Short-term and long-term memory loss Psych: Negative for agitation and anxiety Lab and Diagnostics Result Diagram: 08/18/16 1230 08/18/16 1230 X-Rays, CTs and MRIs PROCEDURE: X-RAY CHEST ONE VIEW, PORTABLE ([id number]) INDICATIONS: 66 year-old female with chest pain. IMPRESSION: Moderate cardiomegaly as before, with mild interstitial pulmonary edema to suggest early congestive heart failure. Dictated by: Aaron Burgso M.D. on 08/18/2016 at 12:12 Approved by: Aaron Burgos M.D. on 08/18/2016 at 12:14 Cardiac Echo Impressions Echocardiogram Report Name: NIRANJAN DAVIES CStudy Date: 07/01/2016 Height: 60 in Hospital Exam Location: [facility] Weight: 193 lb Gender: Female BSA: 1.8 m2 : 1950 Age: 66 yrs BP: 126/76 mmHg Reason For Study: CVA Ordering Physician: Performed By: Nica Youssef Interpretation Summary 1) Mild concentric left ventricular hypertrophy with normal size and normal systolic function (EF 55-60%). 2) Mid to distal anteroseptum, mid to distal inferoseptum, and distal inferior wall have severe hypokinesis. 3) No thrombus noted in the left ventricle. 4) Mildly to moderately dilated right ventricle wtih mildly to moderately reduced function. 5) Severe biatrial enlargement. 6) Moderate tricuspid regurgitation present. 7) Pulmonary hypertension present, esimated systolic pulmonary pressure of 63mmHg. 8) Elevated left sided and right sided filling pressures. 9) Atral fibrillation with controlled ventricular rates present during the study. 10) No prior Echo available for comparison. Reading Physician:03:10 PM Assessment & Plan This is a 66F with PMH of Pulm HTN, CHF of unknown type, HTN, Hyperlipidemia, chronic Afib now presenting with dyspnea due to missed lasix. # CHF (Right Heart Failure) exacerbation/pulmonary hypertension POA:Likely secondary to TR, right heart failure -- IV Lasix 40 mg twice a day, continue home potassium supplement -- Nitroglycerin when necessary -- telemetry monitoring -- Oxygen as needed -- Daily weights and accurate ins and outs -- Morphine when necessary for dyspnea -- She had an echo in June, no need to repeat. -- AM BMP # Chest Pain: Reportedly told the urgent care doctor she had a chest pain, burning pain lasting > 1 wk unlikely cardiac -- Tele monitoring -- Trend cardiac enzymes -- IV Protonix 40 mg QDAC # Chronic atrial fibrillation --Continue Pradaxa home med, metoprolol, cardizem # Chronic hypertension -- Continue home medications Cardizem, metoprolol, lisinopril -- Will hold thiazide and hydralazine as there seems to be a question on dosing and also she is now on lasix, which will help with hTN #Chronic hyperlipidemia -- Continue home medication atorvastatin #Depression, chronic -- Continue home medication Paroxetine Disposition: Discharge to home if patient starts to improve after her medications are verified, she will also need a cardiology follow-up with severe pulmonary hypertension - Resuscitation Status: CPR: Attempt Resuscitation (alternate decision-maker [id number]) Time spent 40 min Cathleen Woodward DO Aug 18, 2016 18:02
[2016-08-18 20:12] LABS: APPEARANCE,URINE HAZY (CLEAR,HAZY); COLOR,URINE YELLOW (YELLOW); OCCULT BLOOD,URINE NEGATIVE (NEGATIVE); UROBILINOGEN,URINE NORMAL (NORMAL)
[2016-08-18 20:27] LABS: TROPONIN T 0.011 ug/L (0.0-0.011)
[2016-08-18] MEDS: Furosemide 10 mg/mL 4 mL Inj IVPUSH SCH (20:36)
[2016-08-18 20:37] LABS: Creatine Kinase 33 U/L (21-215)
[2016-08-19] VITALS (9 sets, daily range): BP systolic 120–148; BP diastolic 66–92; PULSE 64–82; RESP 18–20; O2SAT 89–95
[2016-08-19 02:02] LABS: TROPONIN T < 0.010 ug/L (0.0-0.011)
[2016-08-19 02:18] LABS: Creatine Kinase 32 U/L (21-215)
[2016-08-19] MEDS: Pantoprazole 4 mg/mL 10 mL Inj IVPUSH SCH (08:10)
[2016-08-19] MEDS: Potassium Chloride 20 mEq SR Tablet PO SCH ×2 (08:12→18:17)
[2016-08-19] MEDS: Dabigatran 150 mg Capsule PO SCH ×2 (08:13→18:17)
[2016-08-19] MEDS: Diltiazem CD 180 mg ER24 Capsule PO SCH (08:14)
[2016-08-19] MEDS: PARoxetine 20 mg Tablet PO SCH ×2 (08:14→18:17)
[2016-08-19] MEDS ORDERED: Potassium Chloride Inj 20 MEQ in Dextrose 5% 250 ML IV ONE (08:30)
[2016-08-19] MEDS ORDERED: Potassium Chloride 20 mEq SR Tablet PO ONE (08:30)
[2016-08-19] MEDS: Furosemide 10 mg/mL 4 mL Inj IVPUSH SCH ×2 (09:25→21:17)
[2016-08-19] MEDS ORDERED: 0.9% Sodium Chloride 100 ML ONE (21:05)
--- NOTE | 2016-08-20 00:21 | PCM.PNMED ---
Subjective Date of Service Aug 19, 2016 Subjective Patient has no concerns. She once again stated she has no chest pain. She thinks it may have been GERD that caused her buring sensation. No other concerns. Exam Vital Signs Vital Sign - Last Date Time Temp Pulse Resp B/P Pulse Ox O2 Delivery O2 Flow Rate FiO2 08/19/16 18:15 37.0 65 18 147/66 91 Nasal Cannula 2.00 Intake and Output 08/18/16 08/18/16 08/19/16 Cumulative From/Thru 15:00 23:00 07:00 08/18/16 12:09 - 08/19/16 06:12 Intake Total 600 ml 600 ml Output Total 300 ml 2100 ml 2400 ml Balance -300 ml -1500 ml -1800 ml Intake Oral 600 ml 600 ml Output Urine Total 300 ml 2100 ml 2400 ml # Voids 2 2 # Bowel Movements 0 0 Exam Gen.: No acute distress,, laying in bed HEENT: Slight asymmetry in the left eye Heart: Irregular rate, no murmurs Lungs: Clear to auscultation bilaterally no crackles or wheezes Abdomen soft nontender nondistended normal bowel sounds Extremities: Positive ankle edema left greater than right Skin: Chronic hemosiderin changes bilaterally Neck: Negative for JVD and hepatojugular reflux Neuro: Alert and oriented to person and location but not to date(she did not recall after delay), Short-term and long-term memory loss Psych: Negative for agitation and anxiety IVs and Medications Medications Reviewed: Medications were reviewed in detail Lab and Diagnostics Result Diagram: 08/18/16 1230 08/19/16 0600 X-Rays, CTs and MRIs PROCEDURE: X-RAY CHEST ONE VIEW, PORTABLE ([id number]) INDICATIONS: 66 year-old female with chest pain. IMPRESSION: Moderate cardiomegaly as before, with mild interstitial pulmonary edema to suggest early congestive heart failure. Dictated by: Aaron Burgos M.D. on 08/18/2016 at 12:12 Approved by: Aaron Burgos M.D. on 08/18/2016 at 12:14 Cardiac Echo Impressions Echocardiogram Report Name: NIRANJAN DAVIES CStudy Date: 07/01/2016 Height: 60 in Hospital Exam Location: [facility] Weight: 193 lb Gender: Female BSA: 1.8 m2 : 1950 Age: 66 yrs BP: 126/76 mmHg Reason For Study: CVA Ordering Physician: Performed By: Nica Youssef Interpretation Summary 1) Mild concentric left ventricular hypertrophy with normal size and normal systolic function (EF 55-60%). 2) Mid to distal anteroseptum, mid to distal inferoseptum, and distal inferior wall have severe hypokinesis. 3) No thrombus noted in the left ventricle. 4) Mildly to moderately dilated right ventricle wtih mildly to moderately reduced function. 5) Severe biatrial enlargement. 6) Moderate tricuspid regurgitation present. 7) Pulmonary hypertension present, esimated systolic pulmonary pressure of 63mmHg. 8) Elevated left sided and right sided filling pressures. 9) Atral fibrillation with controlled ventricular rates present during the study. 10) No prior Echo available for comparison. Reading Physician:03:10 PM Assessment & Plan This is a 66F with PMH of Pulm HTN, CHF of unknown type, HTN, Hyperlipidemia, chronic Afib now presenting with dyspnea due to missed lasix. # CHF (Right Heart Failure) exacerbation/pulmonary hypertension POA:Likely secondary to TR, right heart failure -- IV Lasix 40 mg twice a day, continue home potassium supplement: Plan to switch to PO 08/20 -- Nitroglycerin when necessary -- telemetry monitoring -- Oxygen as needed -- Daily weights and accurate ins and outs -- Morphine when necessary for dyspnea -- She just had an echo in June, no need to repeat. -- AM BMP -- she declined # Hypokalemia: -- Patient is repleted with IV+PO repletion this am -- MAg levels are ordered # Chest Pain: Reportedly told the urgent care doctor she had a chest pain, burning pain lasting > 1 wk unlikely cardiac. thought to be due to GERD -- Tele monitoring -- Trend cardiac enzymes: ACS is ruled out -- IV Protonix 40 mg QDAC: This has helped. -- Consider o/p stress test if there is further concern # Chronic atrial fibrillation --Continue Pradaxa home med, metoprolol, cardizem # Chronic hypertension -- Continue home medications Cardizem, metoprolol, lisinopril , hydralazine -- Will hold thiazide as there seems to be a question on dosing and also she is now on addiitonal lasix, which will help with hTN #Chronic hyperlipidemia -- Continue home medication atorvastatin #Depression, chronic -- Continue home medication Paroxetine Disposition: Discharge to home if patient starts to improve after her medications are verified, she will also need a cardiology follow-up with severe pulmonary hypertension - VTE Mechanical Devices: Intermittant Pneumatic CD Resuscitation Status: CPR: Attempt Resuscitation (alternate decision-maker [id number]) Cathleen Woodward DO Aug 19, 2016 18:16
[2016-08-20 02:00] VITALS: BP 146/91; PULSE 72; RESP 16; O2SAT 92
[2016-08-20 06:26] VITALS: BP 147/83; PULSE 58; RESP 16; O2SAT 89
[2016-08-20] MEDS: Potassium Chloride 20 mEq SR Tablet PO SCH ×2 (08:00→17:56)
[2016-08-20] MEDS: Diltiazem CD 180 mg ER24 Capsule PO SCH ×2 (08:30→17:25)
--- NOTE | 2016-08-20 08:57 | PCM.PNMED ---
Subjective Date of Service Aug 20, 2016 Subjective Patient states she is feeling much better. Talked to daughter who is concerned about not having a PCP, not having a f/u w cards till 10/14. Kerri ruvalcaba says mom had chest pain that was not normal for her, patient apparently had an CA in the remote past. Exam Vital Signs Vital Sign - Last Date Time Temp Pulse Resp B/P Pulse Ox O2 Delivery O2 Flow Rate FiO2 08/20/16 06:26 36.9 58 16 147/83 89 Room Air 08/20/16 02:00 2.00 Intake and Output 08/19/16 08/19/16 08/20/16 Cumulative From/Thru 15:00 23:00 07:00 08/18/16 12:09 - 08/20/16 06:26 Intake Total 2863 ml 173 ml 3636 ml Output Total 700 ml 700 ml 3800 ml Balance 2163 ml -527 ml -164 ml Intake Oral 2613 ml 120 ml 3333 ml IV Total 250 ml 53 ml 303 ml Output Urine Total 700 ml 700 ml 3800 ml # Voids 2 4 # Bowel Movements 1 1 Exam Gen.: No acute distress,, laying in bed HEENT: Slight asymmetry in the left eye Heart: Irregular rate, no murmurs Lungs: Clear to auscultation bilaterally no crackles or wheezes Abdomen soft nontender nondistended normal bowel sounds Extremities: Positive ankle edema left greater than right Skin: Chronic hemosiderin changes bilaterally Neck: Negative for JVD and hepatojugular reflux Neuro: Alert and oriented to person and location but not to date(she did not recall after delay), Short-term and long-term memory loss Psych: Negative for agitation and anxiety IVs and Medications IV Fluids none Medications Reviewed: Medications were reviewed in detail Lab and Diagnostics Result Diagram: 08/18/16 1230 08/20/16 0740 X-Rays, CTs and MRIs PROCEDURE: X-RAY CHEST ONE VIEW, PORTABLE ([id number]) INDICATIONS: 66 year-old female with chest pain. IMPRESSION: Moderate cardiomegaly as before, with mild interstitial pulmonary edema to suggest early congestive heart failure. Dictated by: Aaron Burgos M.D. on 08/18/2016 at 12:12 Approved by: Aaron Burgos M.D. on 08/18/2016 at 12:14 Cardiac Echo Impressions Echocardiogram Report Name: NIRANJAN DAVIES CStudy Date: 07/01/2016 Height: 60 in Hospital Exam Location: [facility] Weight: 193 lb Gender: Female BSA: 1.8 m2 : 1950 Age: 66 yrs BP: 126/76 mmHg Reason For Study: CVA Ordering Physician: Performed By: Nica Youssef Interpretation Summary 1) Mild concentric left ventricular hypertrophy with normal size and normal systolic function (EF 55-60%). 2) Mid to distal anteroseptum, mid to distal inferoseptum, and distal inferior wall have severe hypokinesis. 3) No thrombus noted in the left ventricle. 4) Mildly to moderately dilated right ventricle wtih mildly to moderately reduced function. 5) Severe biatrial enlargement. 6) Moderate tricuspid regurgitation present. 7) Pulmonary hypertension present, esimated systolic pulmonary pressure of 63mmHg. 8) Elevated left sided and right sided filling pressures. 9) Atral fibrillation with controlled ventricular rates present during the study. 10) No prior Echo available for comparison. Reading Physician:03:10 PM Assessment & Plan This is a 66F with PMH of Pulm HTN, CHF of unknown type, HTN, Hyperlipidemia, chronic Afib now presenting with dyspnea due to missed lasix. # CHF (Right Heart Failure) exacerbation/pulmonary hypertension POA:Likely secondary to TR, right heart failure -- IV Lasix 40 mg twice a day, continue home potassium supplement: Plan to switch to PO 08/20 -- Nitroglycerin when necessary -- telemetry monitoring -- Daily weights and accurate ins and outs -- Morphine when necessary for dyspnea -- She just had an echo in June, no need to repeat. -- AM BMP -- she declined HH -- Switched to PO 60 mg BID lasix -- cont oxygen 1-2L -- CXR f/u # Chest Pain: Reportedly told the urgent care doctor she had a chest pain, burning pain lasting > 1 wk unlikely cardiac. thought to be due to GERD -- Tele monitoring -- Trend cardiac enzymes: ACS is ruled out -- IV Protonix 40 mg QDAC: This has helped. -- Consider o/p stress test if there is further concern -- Ordered stress test for tomorrow # Hypokalemia: -- Patient is repleted with IV KCL earlier -- MAg levels are ordered: normal -- replete with 10 meeq extra this AM # Chronic atrial fibrillation --Continue Pradaxa home med, metoprolol, cardizem # Chronic hypertension -- Continue home medications Cardizem, metoprolol, lisinopril , hydralazine -- Discontinue thiazide as this is not her home med per daughter #Chronic hyperlipidemia -- Continue home medication atorvastatin #Depression, chronic -- Continue home medication Paroxetine Disposition: Discharge to home if patient starts to improve after her medications are verified, she will also need a cardiology follow-up with severe pulmonary hypertension - VTE Mechanical Devices: Intermittant Pneumatic CD Resuscitation Status: CPR: Attempt Resuscitation (alternate decision-maker [id number]) Time spent 25 min Cathleen Woodward DO Aug 20, 2016 08:46
[2016-08-20] MEDS: Pantoprazole 4 mg/mL 10 mL Inj IVPUSH SCH (09:09)
[2016-08-20] MEDS: Dabigatran 150 mg Capsule PO SCH ×2 (09:10→17:25)
[2016-08-20] MEDS: PARoxetine 20 mg Tablet PO SCH ×2 (09:10→17:25)
[2016-08-20 10:33] VITALS: PULSE 66
[2016-08-20 11:53] VITALS: BP 144/88; PULSE 66; RESP 20; O2SAT 96
--- NOTE | 2016-08-20 17:03 | DRSVH ---
PROCEDURE: 1 DAY PHARMACOLOGICAL STRESS TEST Rest and pharmacological stress myocardial perfusion SPECT; gated images not acquired. RADIOPHARMACEUTICAL: 10.9 mCi Tc-99m tetrafosmin IV at rest and 28.1 mCi Tc-99m tetrafosmin IV at pea k effect of pharmacological stress. [id number] was performed. INDICATIONS: 66 year-old woman with coronary artery disease presents with chest pain and congestive heart failure. TECHNIQUE: Radiopharmaceutical was injected at peak stress test, and also at rest. SPECT images wer e obtained. SPECT myocardial perfusion images were displayed in short axis, horizontal long axis, an d vertical long axis views. Images were reviewed using [employer] software. COMPARISON: None. CARDIAC STRESS: A pharmacologic stress test was performed under the supervision of an attending staff, using an infus ion of [employer]. Hemodynamic data: There is normal blood pressure and heart rate response to pharmacologic stress. Symptoms: The patient denied anginal chest pain. Aminophylline: Not needed EKG: Atrial fibrillation and nonspecific ST-T abnormalities. No diagnostic changes of ischemia; freq uent PVCs. FINDINGS: Raw data: There is good myocardial uptake of radiotracer. No significant motion artifacts. Left ventricle function: Gated images were unable to be obtained for functional assessment, due to i rregular heart rate. Note is made of moderately dilated right ventricle. Myocardial perfusion: There is a large, severe, fixed defect in the distal anterior wall and anterio r apex, consistent with a large myocardial infarct. There is mild reversibility in the infarcted terr itory consistent with mild aki-infarct ischemia. IMPRESSION: Abnormal myocardial perfusion images. 1. There is a large myocardial infarct in the distal anterior wall and anterior apex. There is mild p aries-infarct ischemia. 2. Gated images could not be obtained because of irregular heart rate. 3. No chest pain or diagnostic EKG changes of ischemia. 4. Moderate right ventricular enlargement. PQRS ATTESTATIONS: Measure 322 - Is this imaging test primarily performed on a low-risk surgery patient for preoperative evaluation within 30 days preceding their low-risk non-cardiac surgery? Low-risk surgery is defined as cardiac or myocardial infarction less than 1%, including (but not limited to) endoscopic pr ocedures, superficial procedures, cataract surgery, and excisional breast surgery: Answer: No Measure 323 - Is this imaging test performed primarily for the monitoring of an asymptomatic patient who had percutaneous coronary intervention on the visit date or within 2 years of the visit date? An swer: No Measure 324 - Is this imaging test performed primarily for the initial detection and risk assessment on an asymptomatic, low coronary heart disease patient? Low CHD risk definition = clinicians should consider the maximum number of available patient factors used to estimate risk based on [place] (A TP III criteria), typically age, gender, diabetes, smoking status, and use of blood pressure medicati on, and integrate age appropriate estimates for missing elements, such as LDL or standard blood press ure. Answer: No Dictated by: Andrea Singh M.D. on 08/20/2016 at 16:52 Approved by: Andrea Singh M.D. on 08/20/2016 at 17:01
[2016-08-20 17:24] VITALS: BP 127/72; PULSE 72; RESP 22; O2SAT 96
[2016-08-20 21:28] VITALS: BP 149/74; PULSE 70; RESP 18; O2SAT 95
--- NOTE | 2016-08-20 21:48 | DRSVH ---
PROCEDURE: X-RAY CHEST, TWO VIEWS ([id number]) INDICATIONS: CONGESTIVE HEART FAILURE TECHNIQUE: 2 views of the chest were acquired. COMPARISON: [facility], CR, XR CHEST 1VW (PORTABLE), 08/18/2016, 12:49. [facility], CR, XR CHEST 2VW, 06/30/2016, 11:20. FINDINGS: Surgical changes and devices: None. Lungs and pleura: No pleural effusions or pneumothorax. There is moderate diffuse pulmonary reticula r interstitial infiltrates suspicious for pulmonary edema. Mediastinum: Mediastinal contours appear normal. Moderate cardiomegaly is unchanged. There is aorti c atherosclerosis. Bones and chest wall: No suspicious bony lesions. Overlying soft tissues appear unremarkable. IMPRESSION: 1. Moderate cardiomegaly. 2. Chronic pulmonary edema versus interstitial lung disease. Dictated by: Darrian Delcid [facility] Interpreted: Andrea Singh MD on 08/20/2016 at 10:59 Approved by: Andrea Singh M.D. on 08/20/2016 at 21:46
[2016-08-21] VITALS (10 sets, daily range): BP systolic 120–148; BP diastolic 69–81; PULSE 50–77; RESP 14–20; O2SAT 90–96
[2016-08-21] MEDS ORDERED: Dextrose 10% 250 ML IV PRN (07:35)
[2016-08-21] MEDS ORDERED: Glucose 40% Oral Gel 15 Gm Tube PO PRN (07:35)
[2016-08-21] MEDS: Insulin LISPRO 300 Unit/3 mL Inj SUBQ SCH ×4 (08:00→21:39)
[2016-08-21] MEDS: Pantoprazole 4 mg/mL 10 mL Inj IVPUSH SCH (08:18)
[2016-08-21] MEDS: Diltiazem CD 180 mg ER24 Capsule PO SCH (08:18)
[2016-08-21] MEDS: Potassium Chloride 20 mEq SR Tablet PO SCH ×2 (08:18→16:40)
[2016-08-21] MEDS: PARoxetine 20 mg Tablet PO SCH ×2 (08:19→16:40)
[2016-08-21] MEDS: Dabigatran 150 mg Capsule PO SCH ×2 (08:21→16:40)
--- NOTE | 2016-08-21 17:03 | DRSVH ---
[facility] [address] [place] [address] Echocardiogram Report Name: NIRANJAN DAVIES CStudy Date: 08/21/2016 Height: 60 in Hospital Exam Location: [facility] Weight: 167 lb Gender: Female BSA: 1.7 m2 : 1950 Age: 66 yrs BP: 148/70 mmHg Reason For Study: Congestive Heart Failure Ordering Physician: Performed By: Selvin Albarran Interpretation Summary 1. Normal left ventricular size, wall thickness with an estimated EF of 60%. Wall motion abnormalities are as noted below. 2. Mildly dilated right ventricle with mildly reduced systolic function. The estimated RVSP is 67 mm Hg. 3. No evidence for significant valvular pathology When compared to the previous study, no significant change. The estimated right atrial pressures are lower. Procedure: A two-dimensional transthoracic echocardiogram with color flow and Doppler was performed. The study quality was technically adequate. Comparison is made with the echocardiogram of 07/01/16. The heart rate ranged between 53-62 bpm during the study. Left Ventricle: The left ventricle is normal in size. Left ventricular wall thickness is borderline increased. Proximal septal thickening is noted. Left ventricular ejection fraction is estimated to be 60%. There is severe hypokinesis to akinesis of mid distal septum and apical inferior segment. Hypokinesis of the apical infero and anteroseptal segment and mid to distal inferior wall. Diastolic function could not be accurately assessed due to atrial fibrillation. Right Ventricle: The right ventricle is mildly dilated. Right ventricular systolic function is mildly reduced. Atria: Both atria are severely dilated. Mitral Valve: The mitral valve leaflets appear borderline thickened, but open well. There is mild to moderate mitral annular calcification. There is mild mitral regurgitation. Aortic Valve: The aortic valve is trileaflet. The aortic valve is slightly calcified. There is no hemodynamically significant valvular aortic stenosis. No aortic regurgitation is present. Tricuspid Valve: The tricuspid valve is normal. There is moderate tricuspid regurgitation. The right ventricular systolic pressure is estimated at 67 mmHg assuming a right atrial pressure of 8 mm Hg. Pulmonic Valve: The pulmonic valve is not well visualized. There is a trace or physiologic amount of pulmonic regurgitation. Great Vessels: The aortic root is normal size. The dimensions of the ascending aorta are normal. The IVC is of normal diameter and collapses less than 50% with a sniff. This suggests a right atrial pressure of 8 mm Hg. Pericardium/ Pleura There is no pericardial effusion. There is no pleural effusion. MMode/2D Measurements & Calculations LVIDd: 4.6 cm LA A2 area RA long axis LVOT diam EPSS: 0.20 cm LVPWd: 1.0 cm RA area Ao root diam LA A4 area : 24.9 cm asc Aorta Diam LA length (vol) RA vol: 87.5 ml RA LA vol: 86.9 ml : 50.6 mm2 LA vol index IVC diam: 2.0 cm LV yañez. diameter/BSA TAPSE: 1.0 cm (cm/m^2): 2.7 Doppler Measurements & Calculations Ao V2 max: 184.9 cm/secMV E max saeid Med Peak E' Saeid TR max saeid Ao max P.7 mmHg : 110.1 cm/sec : 384.1 cm/sec Ao mean P.2 mmHg E/E' med: 20.1 TR max PG LVOT Max Saeid MVA(VTI): 2.0 cm2 Lat Peak E' Saeid : 59.2 mmHg : 89.1 cm/sec PA V2 max E/E' lat: 21.8 : 141.4 cm/sec JUSTIN(I,D): 1.5 cm E/e' average PA mean PG sev ratio: 0.54 : 2.7 mmHg MV V2 mean: 55.1 cm/secAo V2 mean LV V1 max PG PA V2 mean MV mean P.6 mmHg : 126.6 cm/sec : 77.1 cm/sec MV V2 VTI: 29.4 cm Ao V2 VTI: 37.3 cmLV V1 VTI PA pr(Accel) : 20.0 cm : 50.7 mmHg JUSTIN(V,D): 1.4 cm2 JUSTIN indexed to BSA (cm^2/m^2): 0.89 Reading Physician:05:02 PM
--- NOTE | 2016-08-22 00:32 | PCM.PNMED ---
Subjective Date of Service Aug 21, 2016 Subjective Patient is saying that she is feeling better. She is continuing to need 2 L of oxygen. She has undergone a pharmacological cardiac stress test yesterday. Results is read as abnormal. Patient did have DE 20 years ago per daughter. Patient has no concerns Exam Vital Signs Vital Sign - Last Date Time Temp Pulse Resp B/P Pulse Ox O2 Delivery O2 Flow Rate FiO2 08/21/16 21:15 37.0 74 18 135/79 94 Nasal Cannula 2.00 Intake and Output 08/21/16 08/21/16 08/22/16 Cumulative From/Thru 15:00 23:00 07:00 08/18/16 12:09 - 08/21/16 15:35 Intake Total 600 ml 4961 ml Output Total 5075 ml Balance 600 ml -114 ml Intake Oral 200 ml 3808 ml IV Total 400 ml 1153 ml Output Urine Total 5075 ml # Voids 1 5 # Bowel Movements 2 Exam Gen.: No acute distress,, laying in bed HEENT: Slight asymmetry in the left eye Heart: Irregular rate, no murmurs Lungs: Clear to auscultation bilaterally no crackles or wheezes Abdomen soft nontender nondistended normal bowel sounds Extremities: Positive ankle edema left greater than right Skin: Chronic hemosiderin changes bilaterally Neck: Negative for JVD and hepatojugular reflux Neuro: Alert and oriented to person and location but not to date(she did not recall after delay), Short-term and long-term memory loss Psych: Negative for agitation and anxiety IVs and Medications IV Fluids None Medications Reviewed: Medications were reviewed in detail Lab and Diagnostics Result Diagram: 08/18/16 1230 08/20/16 1457 X-Rays, CTs and MRIs PROCEDURE: X-RAY CHEST ONE VIEW, PORTABLE ([id number]) INDICATIONS: 66 year-old female with chest pain. IMPRESSION: Moderate cardiomegaly as before, with mild interstitial pulmonary edema to suggest early congestive heart failure. Dictated by: Aaron Burgos M.D. on 08/18/2016 at 12:12 Approved by: Aaron Burgos M.D. on 08/18/2016 at 12:14 Cardiac Echo Impressions Echocardiogram Report Name: NIRANJAN DAVIES CStudy Date: 07/01/2016 Height: 60 in Hospital Exam Location: [facility] Weight: 193 lb Gender: Female BSA: 1.8 m2 : 1950 Age: 66 yrs BP: 126/76 mmHg Reason For Study: CVA Ordering Physician: Performed By: Nica Youssef Interpretation Summary 1) Mild concentric left ventricular hypertrophy with normal size and normal systolic function (EF 55-60%). 2) Mid to distal anteroseptum, mid to distal inferoseptum, and distal inferior wall have severe hypokinesis. 3) No thrombus noted in the left ventricle. 4) Mildly to moderately dilated right ventricle wtih mildly to moderately reduced function. 5) Severe biatrial enlargement. 6) Moderate tricuspid regurgitation present. 7) Pulmonary hypertension present, esimated systolic pulmonary pressure of 63mmHg. 8) Elevated left sided and right sided filling pressures. 9) Atral fibrillation with controlled ventricular rates present during the study. 10) No prior Echo available for comparison. Reading Physician:03:10 PM Additional Diagnostics PROCEDURE: 1 DAY PHARMACOLOGICAL STRESS TEST Rest and pharmacological stress myocardial perfusion SPECT; gated images not acquired. IMPRESSION: Abnormal myocardial perfusion images. 1. There is a large myocardial infarct in the distal anterior wall and anterior apex. There is mild aki-infarct ischemia. 2. Gated images could not be obtained because of irregular heart rate. 3. No chest pain or diagnostic EKG changes of ischemia. 4. Moderate right ventricular enlargement. Dictated by: Andrea Singh M.D. on 08/20/2016 at 16:52 Approved by: Andrea Singh M.D. on 08/20/2016 at 17:01 Assessment & Plan This is a 66F with PMH of Pulm HTN, CHF of unknown type, HTN, Hyperlipidemia, chronic Afib now presenting with dyspnea due to missed lasix. # Acute of Chronic HFPEF, (Right Heart Failure) exacerbation/pulmonary hypertension POA:Likely secondary to TR, right heart failure resolved -- IV Lasix 40 mg twice a day, continue home potassium supplement: Plan to switch to PO 08/20 -- Nitroglycerin when necessary -- telemetry monitoring -- Daily weights and accurate ins and outs -- Morphine when necessary for dyspnea -- She just had an echo in June, no need to repeat. -- AM BMP -- she declined HH thia AM, daughter does not feel they need it. -- Switched to PO 60 mg BID lasix -- cont oxygen 1-2L -- CXR 08/20 I have personally reviewed it myself : Moderate cardiomegaly. Chronic pulmonary edema versus interstitial lung disease. Abnormal Stress Test: -- Chest Pain: Reportedly told the urgent care doctor she had a chest pain, burning pain lasting > 1 wk unlikely cardiac. thought to be due to GERD -- Tele monitoring -- Trend cardiac enzymes: ACS is ruled out -- IV Protonix 40 mg QDAC: This has helped. -- Consider o/p stress test if there is further concern -- Ordered stress test : abnormal "There is a large myocardial infarct in the distal anterior wall and anterior apex. There is mild aki-infarct ischemia." -- I personally contacted and consulted Dr. Yan from cardiology: She recommended a echocardiogram, she will see the patient. The patient at daytime and recommendations.: "1. Normal left ventricular size, wall thickness with an estimated EF of 60%. Wall motion abnormalities are as noted below. 2. Mildly dilated right ventricle with mildly reduced systolic function. The estimated RVSP is 67 mm Hg. 3. No evidence for significant valvular pathology -- Dr. Yan plans to see patient for a f/u o/p. Pulmonary HTN: -- Cont home lasix -- o/p f/u with Dr. Yan # Hypokalemia: Resolved -- Monitor and replete as needed # Chronic atrial fibrillation --Continue Pradaxa home med, metoprolol, cardizem # Chronic hypertension -- Her medications Cardizem and metoprolol decreased due to asymptomatic bradycardia overnight -- Continue home medications , lisinopril , hydralazine -- Discontinue thiazide as this is not her home med per daughter #Chronic hyperlipidemia -- Continue home medication atorvastatin #Depression, chronic -- Continue home medication Paroxetine Disposition: Discharge to home if patient starts to improve after her medications are verified, she will also need a cardiology follow-up with severe pulmonary hypertension - VTE Prophylaxis: Other (Pradaxa) VTE Mechanical Devices: Intermittant Pneumatic CD Resuscitation Status: CPR: Attempt Resuscitation (alternate decision-maker [phone]) Time spent 30 min Cathleen Woodward DO Aug 22, 2016 00:31
[2016-08-22 02:35] VITALS: BP 120/70; PULSE 65; RESP 16; O2SAT 95
[2016-08-22 05:58] VITALS: BP 144/61; PULSE 68; RESP 16; O2SAT 94
[2016-08-22] MEDS ORDERED: METO25TA6 PO (07:26)
[2016-08-22] MEDS ORDERED: DILT180C66 PO ×2 (07:26→09:15)
[2016-08-22] MEDS ORDERED: METF500T4 PO (07:29)
--- NOTE | 2016-08-22 07:32 | PCM.DIMED ---
Discharge Instructions Date of Service Aug 22, 2016 Dates of Hospitalization Aug 18, 2016 at 15:52 Discharge Diagnosis Discharge Diagnosis HEPEF CHF acute of Chr exacerbation, Abnormal Stress Test, Diabetes Type 2, HTN Medication Instructions Additional med instructions Please note new medicaiton metformin Please note reduction in metoprolol and diltiazem Diet Discharge Diet: Low fat, Low Sodium, Heart Healthy, Diabetic Activity Discharge Activity: No restrictions Call your provider Call your provider for: Fever or Chills, Shortness of breath, Bleeding, Chest pain, Vomitting, Excessive diarrhea, Weakness (unilateral), Other Patient Instructions Follow-up plan Please F/U with PCP in 1-2 weeks F/U BMP prior to PCP visit Fingerstick Glucose at the PCP visit Please F/IU with Dr. Yan Cardiology in 1-2 weeks Cathleen Woodward DO Aug 22, 2016 07:32
--- NOTE | 2016-08-22 07:33 | PCM.DC.MED ---
Discharge Summary Date of Service Aug 22, 2016 Dates of Hospitalization Date of Hospital Admission Aug 18, 2016 at 15:52 Date of Discharge: Aug 22, 2016 Providers: Admitting Physician: Cathleen Jaramillo DO Primary Care Physician: Carmen Attending Physician: Cathleen Jaramillo DO Diagnosis at Time of Discharge Diagnosis at Time of Discharge acute of Chronic HEPEF exacerbation, Abnormal Stress Test, Diabetes Type 2, HTN , CAD Consultations Cardiology Procedures XRay, CTs & MRIs PROCEDURE: X-RAY CHEST ONE VIEW, PORTABLE ([id number]) INDICATIONS: 66 year-old female with chest pain. IMPRESSION: Moderate cardiomegaly as before, with mild interstitial pulmonary edema to suggest early congestive heart failure. Dictated by: Aaron Burgos M.D. on 08/18/2016 at 12:12 Approved by: Aaron Burgos M.D. on 08/18/2016 at 12:14 Cardiac Echo Impression Echocardiogram Report Name: NIRANJAN DAVIES CStudy Date: 07/01/2016 Height: 60 in Hospital Exam Location: [facility] Weight: 193 lb Gender: Female BSA: 1.8 m2 : 1950 Age: 66 yrs BP: 126/76 mmHg Reason For Study: CVA Ordering Physician: Performed By: Nica Youssef Interpretation Summary 1) Mild concentric left ventricular hypertrophy with normal size and normal systolic function (EF 55-60%). 2) Mid to distal anteroseptum, mid to distal inferoseptum, and distal inferior wall have severe hypokinesis. 3) No thrombus noted in the left ventricle. 4) Mildly to moderately dilated right ventricle wtih mildly to moderately reduced function. 5) Severe biatrial enlargement. 6) Moderate tricuspid regurgitation present. 7) Pulmonary hypertension present, esimated systolic pulmonary pressure of 63mmHg. 8) Elevated left sided and right sided filling pressures. 9) Atral fibrillation with controlled ventricular rates present during the study. 10) No prior Echo available for comparison. Reading Physician:03:10 PM Other Diagnostics PROCEDURE: 1 DAY PHARMACOLOGICAL STRESS TEST Rest and pharmacological stress myocardial perfusion SPECT; gated images not acquired. IMPRESSION: Abnormal myocardial perfusion images. 1. There is a large myocardial infarct in the distal anterior wall and anterior apex. There is mild aki-infarct ischemia. 2. Gated images could not be obtained because of irregular heart rate. 3. No chest pain or diagnostic EKG changes of ischemia. 4. Moderate right ventricular enlargement. Dictated by: Andrea Singh M.D. on 08/20/2016 at 16:52 Approved by: Andrea Singh M.D. 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 Is apparently seen at the residency clinic and then Lasix dose was increased from 40-60 mg however 25 mg of hydrochlorothiazide was sent to her drug store and she ended up having more swollen legs last night, she apparently described burning chest pain for one week to the Urgent Care doctor. ( she denies currently chest pain.) Elevating leg legs and night home medications have helped with swelling. Patient is alone by herself in the room and does not seem to recall details much as her short-term or long-term memory are not very well. She at one point thought she was here for a heart attack in June but then corrected herself saying it was for a stroke. She denies dyspnea, nausea, vomiting, fevers chills , chest pain, numbness tingling, abdominal pain. she says that her ankle edema is much better after 1 dose of 60 mg IV Lasix. She denies diarrhea or constipation. She says that she was able to lay down flat at home. She denies vision symptoms of vaginal bleeding and urinary symptoms. In the ER EKG revealed atrial fibrillation at the rate of 66, and abnormal T waves in lateral leads, chest x-ray showed moderate cardiomegaly and mild interstitial edema and troponin was negative, BNP was elevated at 3 076. Troponin was normal rest of her lab work was fairly unremarkable. Reviewing records she had a echocardiogram in 07/01/2016 that showed 55-60% ejection fraction, severe hypokinesis, biatrial severe enlargement, moderate tricuspid regurgitation, elevated left and right sided pressures, atrial fibrillation, pulmonary hypertension at 63 mmHg. 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 She is waiting to establish herself at the residency clinic. Per [facility] records, patient is unable to answer many questions due to a recent stroke, and a dx of alzheimers. Patient has increased swelling of the legs, and was told to come here to by one of the residency docs. Hospital Course This is a 66F with PMH of Pulm HTN, CHF of unknown type, HTN, Hyperlipidemia, chronic Afib now presenting with dyspnea due to missed lasix. # Acute of Chronic HFPEF, (Right Heart Failure) exacerbation/pulmonary hypertension POA: Resolved -- Likely secondary to TR, right heart failure -- IV Lasix 40 mg twice a day, continue home potassium supplement: Plan to switch to PO 08/20 -- Nitroglycerin when necessary -- telemetry monitoring -- Daily weights and accurate ins and outs -- Morphine when necessary for dyspnea. -- AM BMP -- she declined HH, daughter does not feel they need it. -- Switched to PO 60 mg BID lasix -- cont oxygen 1-2L -- CXR 08/20 I have personally reviewed it myself : Moderate cardiomegaly. Chronic pulmonary edema versus interstitial lung disease. Abnormal Stress Test: -- Chest Pain: Reportedly told the urgent care doctor she had a chest pain, burning pain lasting > 1 wk -- Tele monitoring -- Trend cardiac enzymes: ACS is ruled out -- IV Protonix 40 mg QDAC: This has helped. -- Consider o/p stress test if there is further concern -- Ordered stress test : abnormal "There is a large myocardial infarct in the distal anterior wall and anterior apex. There is mild aki-infarct ischemia." -- I personally contacted and consulted Dr. Yan from cardiology: She recommended a echocardiogram, she will see the patient. The patient at daytime and recommendations.: "1. Normal left ventricular size, wall thickness with an estimated EF of 60%. Wall motion abnormalities are as noted below. 2. Mildly dilated right ventricle with mildly reduced systolic function. The estimated RVSP is 67 mm Hg. 3. No evidence for significant valvular pathology -- Dr. Yan plans to see patient for a f/u o/p. Pulmonary HTN: -- Cont home lasix -- o/p f/u with Dr. Yan # Hypokalemia: Resolved -- Monitor and replete as needed # Chronic atrial fibrillation --Continue Pradaxa home med, metoprolol, cardizem -- Metoprolol dose is reduced due to concern for one time bradycardia noted on tele. # Chronic hypertension -- Her medications Cardizem and metoprolol decreased due to asymptomatic bradycardia overnight -- Continue home medications , lisinopril , hydralazine -- Discontinue thiazide as this is not her home med per daughter #Chronic hyperlipidemia -- Continue home medication atorvastatin #Depression, chronic -- Continue home medication Paroxetine Disposition: Discharge to home if patient starts to improve after her medications are verified, she will also need a cardiology follow-up with severe pulmonary hypertension - Exam Vital Signs (Last) Date Time Temp Pulse Resp B/P Pulse Ox O2 Delivery O2 Flow Rate FiO2 08/22/16 05:58 36.8 68 16 144/61 94 Nasal Cannula 2.00 Exam Gen.: No acute distress,, laying in bed HEENT: Slight asymmetry in the left eye Heart: Irregular rate, no murmurs Lungs: Clear to auscultation bilaterally no crackles or wheezes Abdomen soft nontender nondistended normal bowel sounds Extremities: Positive ankle edema left greater than right Skin: Chronic hemosiderin changes bilaterally Neck: Negative for JVD and hepatojugular reflux Neuro: Alert and oriented to person and location but not to date(she did not recall after delay), Short-term and long-term memory loss Psych: Negative for agitation and anxiety Test 08/18/16 12:30 08/18/16 13:45 08/18/16 19:44 08/19/16 01:25 White Blood Count 10.2th/mm3 (3.8-10.1) Red Blood Count 4.83mil/mm3 (3.90-5.20) Hemoglobin 14.2g/dL (12.0-15.6) Hematocrit 44.0% (35.0-46.0) Mean Corpuscular Volume 91.1fL (81-100) Mean Corpuscular Hemoglobin 29.4pg (27.0-35.0) Mean Corpuscular Hemoglobin Concent 32.3% (32.0-37.0) Red Cell Distribution Width 15.6% (12.3-15.4) Platelet Count 352bil/L (150-400) Neutrophils (%) (Auto) 80.9% (40-74) Lymphocytes (%) (Auto) 9.0% (14-46) Monocytes (%) (Auto) 7.3% (4-12) Eosinophils (%) (Auto) 2.0% (0-5) Basophils (%) (Auto) 0.5% (0-3) Total Bilirubin 0.8mg/dL (0.0-1.2) Aspartate Amino Transf (AST/SGOT) 14U/L (0-50) Alanine Aminotransferase (ALT/SGPT) 10U/L (0-32) Alkaline Phosphatase 58U/L (25-165) Pro-B-Type Natriuretic Peptide 3076pg/mL (0-301) Total Protein 7.7g/dL (6.4-8.4) Albumin 3.2g/dL (3.4-5.0) Hold Julian Top Tube Received (Received) Hold Urine Received (Received) Urine Color Yellow (YELLOW) Urine Appearance Hazy (CLEAR,HAZY) Urine pH 5.0 (5.0-8.0) Urine Specific Kincaid 1.010 (1.003-1.035) Urine Protein Negativemg/dL (NEG,TRACE) Urine Glucose (UA) Negativemg/dL (NEGATIVE) Urine Ketones Negativemg/dL (NEGATIVE) Urine Occult Blood Negative (NEGATIVE) Urine Nitrite Negative (NEGATIVE) Urine Bilirubin Negative (NEGATIVE) Urine Urobilinogen Normalmg/dL (NORMAL) Urine Leukocyte Esterase Negative (NEGATIVE) Urine RBC 0-2/hpf (0-2) Urine WBC 0-5/hpf (0-5) Urine Epithelial Cells Moderate/hpf (NONE-MOD) Urine Crystals None seen (NONE SEEN) Urine Bacteria Few/hpf (NONE-FEW) Urine Hyaline Casts None/lpf (NONE) Urine Granular Casts None seen (NONE SEEN) Urine Waxy Casts None seen (NONE SEEN) Urine Red Blood Cell Casts None seen (NONE SEEN) Urine White Blood Cell Casts None seen (NONE SEEN) Urine Mucus None seen (None Seen) Urine Trichomonas None seen (NONE SEEN) Urine Yeast None (NONE SEEN) Urinalysis Comment None Urine Culture Reflexed Not indicated Total Creatine Kinase 32U/L (21-215) Creatine Kinase MB 1.8ng/mL (0.0-5.3) Creatine Kinase MB % % (0.0-5.0) Troponin T < 0.010ug/L (0.0-0.011) Test 08/20/16 07:40 08/20/16 16:57 Sodium Level 141mEq/L (134-144) Chloride Level 99mEq/L (97-108) Carbon Dioxide Level 31mmol/L (18-29) Blood Urea Nitrogen 17mg/dL (8-27) Creatinine 0.84mg/dL (0.57-1.00) Estimat Glomerular Filtration Rate 97mL/min (>59) Glucose Level 153mg/dL (60-99) Hemoglobin A1c 7.6% (4.8-5.6) Calcium Level 9.0mg/dL (8.5-10.1) Magnesium Level 1.8mg/dL (1.6-2.6) Potassium Level 3.5mEq/L (3.5-5.2) Discharge Medications Discharge Medications Atorvastatin Calcium (Atorvastatin Calcium) 10 Mg Tablet 40 MG PO HS Prescribed by: JASON CRUZ MD Dabigatran Etexilate Mesylate (Pradaxa) 150 Mg Capsule 150 MG PO BIDWM (Reported ) Diltiazem ER (Cardizem CD) 180 Mg Cap.er.24h 180 MG PO DAILY Prescribed by: CATHLEEN JARAMILLO DO Docusate Sodium (Colace) 100 Mg Capsule 100 MG PO BID (Reported) Furosemide (Furosemide) 40 Mg Tablet 60 MG PO BIDBL (Reported) Hydralazine (Hydralazine) 10 Mg Tablet 10 MG PO QID (Reported) Latanoprost (Latanoprost) 2.5 Ml Drops 1 GTT BOTH_EYES HS (Reported) Lisinopril (Lisinopril) 20 Mg Tablet 20 MG PO BID (Reported) Metformin (Metformin) 500 Mg Tablet 500 MG PO BID Prescribed by: CATHLEEN JARAMILLO DO Metoprolol Tartrate (Metoprolol Tartrate) 25 Mg Tablet 12.5 MG PO BID Prescribed by: CATHLEEN JARAMILLO DO Paroxetine (Paroxetine) 40 Mg Tablet 20 MG PO BIDWM (Reported) Potassium Chloride (Potassium Chloride) 20 Meq Tab.er.prt 40 MEQ PO BIDWM ( Reported) TAKE WITH FOOD As needed Acetaminophen (Acetaminophen) 325 Mg Tablet 650 MG PO Q4H PRN PRN For Fever ( Reported) Loratadine (Claritin) 10 Mg Capsule 10 MG PO DAILY PRN PRN ALLERGIES (Reported) Additional med instructions Please note new medicaiton metformin Please note reduction in metoprolol and diltiazem Followup Plan Follow-up plan Please F/U with PCP in 1-2 weeks F/U BMP prior to PCP visit Fingerstick Glucose at the PCP visit Please F/IU with Dr. Yan Cardiology in 1-2 weeks Discharge Diet: Low fat, Low Sodium, Heart Healthy, Diabetic Discharge Activity: No restrictions Time spent >30 min Cathleen Jaramillo DO Aug 22, 2016 07:33
[2016-08-22] MEDS: Insulin LISPRO 300 Unit/3 mL Inj SUBQ SCH ×2 (08:00→12:00)
[2016-08-22] MEDS: Pantoprazole 4 mg/mL 10 mL Inj IVPUSH SCH (08:00)
[2016-08-22] MEDS: PARoxetine 20 mg Tablet PO SCH (08:01)
[2016-08-22] MEDS: Potassium Chloride 20 mEq SR Tablet PO SCH (08:01)
[2016-08-22] MEDS: Dabigatran 150 mg Capsule PO SCH (08:14)
[2016-08-22 08:17] VITALS: BP 131/75; PULSE 63; RESP 16; O2SAT 96
[2016-08-22] MEDS ORDERED: Diltiazem CD 120 mg ER24 Capsule PO SCH (08:30)
[2016-08-22] MEDS ORDERED: Diltiazem CD 180 mg ER24 Capsule PO SCH ×2 (08:30)
== END 2016-08-22 13:55 | disposition home or self-care (01) | DRG 293 ==
LOC: SED 11:59 → OSC 15:52 → MOC 08-19 11:22
PROVIDERS: ADMIT Family Medicine; ATTEND Family Medicine
DX: I50.33 Acute on chronic diastolic (congestive) heart failure (principal); I69.320 Aphasia following cerebral infarction; I48.2 Chronic atrial fibrillation; I27.2 Other secondary pulmonary hypertension; G30.9 Alzheimer's disease, unspecified; F02.80 Dementia in other diseases classified elsewhere, unspecified severity, without behavioral disturbance, psychotic disturbance, mood disturbance, and anxiety; E78.5 Hyperlipidemia, unspecified; F32.9 Major depressive disorder, single episode, unspecified; R07.9 Chest pain, unspecified; E11.9 Type 2 diabetes mellitus without complications; I25.10 Atherosclerotic heart disease of native coronary artery without angina pectoris; I10 Essential (primary) hypertension